=== PATIENT | male | born 1980 | race Caucasian/White ===

== ENCOUNTER 2019-09-17 13:02 | Emergency (ER) | payer BC, SELFPAY ==
--- NOTE | ~2019-09-17 | XR_ITS ---
EXAMINATION: XR foot RT 2V DATE: 09/17/2019 13:35 INDICATION: Dorsal right foot pain TECHNIQUE: Dorsoplantar and lateral views of the right foot were obtained. COMPARISON: None. FINDINGS: Alignment is normal. No fracture. Mild polyarticular osteoarthritis involving the ankle, first metata rsophalangeal and a few interphalangeal joints. Tiny Achilles and plantar calcaneal spurs. No cortica l erosions or periosteal reaction. Soft tissues are unremarkable. IMPRESSION: 1. Mild degenerative skeletal changes. No acute osseous abnormality. Reviewed, dictated and finalized at location A.
--- NOTE | 2019-09-17 13:09 | ED.LOWEXIN ---
HPI - Extremity Injury (Lower) General Chief Complaint: Extremity Injury, Lower Stated Complaint: Right foot pain Time Seen by Provider: 09/17/19 13:13 Source: patient and RN notes reviewed Mode of arrival: ambulatory Limitations: no limitations History of Present Illness HPI Narrative: 38 year old male who presents to [facility] care with complaints of pain to the dorsal aspect of his right foot for the past 4 days. Patient states that he has had pain like this previously and thinks it could be gout but usually will resolve in a couple of days. Patient states that he knows of no injury to his right foot, describes pain as sharp and tingling and pain is worse with ambulation. Patient states that he started having pain on Monday and Monday he did yard work which he thinks aggravated his pain. Patient has some swelling to the dorsal aspect of his right foot, pedal and posterior tibial pulses strong, does not radiate into his leg or ankle, foot is warm and mobile. Patient states that he has drank tolliver juice, heard it would help gout. Blood pressure rechecked prior to discharge with readings of 140/82. MD complaint: other (right dorsal foot pain) Onset (ago): day(s) (4 days) Injury: Right: foot (dorsal) Type of Injury: unknown Severity: severe Severity scale (1-10): 8 (with ambulation) Relieving factors: nothing Exacerbating factors: movement and other (ambulating) Associated symptoms: tingling Related Data Allergies Allergy/AdvReac Type Severity Reaction Status Date / Time No Known Allergies Allergy Unverified 10/18/15 14:09 Review of Systems Review of Systems: Narrative: CONSTITUTIONAL: Denies fever, chills, or sweats. EYES: Denies visual changes, redness, or discharge. ENT: Denies rhinorrhea, congestion, sore throat, or otalgia. CARDIOVASCULAR: Denies chest pain, palpitations, or edema. RESPIRATORY: Denies cough or dyspnea. GASTROINTESTINAL: Denies abdominal pain, nausea, vomiting, or diarrhea. GENITOURINARY: Denies dysuria or hematuria. SKIN: Denies rash or itching. MUSCULOSKELETAL: Denies back pain, right dorsal foot pain with no known injury,pain increases with ambulation. NEUROLOGIC: Denies headache, numbness, or weakness. PSYCHIATRIC: Denies anxiety or depression. All systems reviewed & are unremarkable except as noted in HPI and below PMFSH Past Medical History Medical History (Updated 09/18/19 @ 11:47 by Annamaria Hui NP) Hx of bladder infections Hypertension Pulmonary embolism Surgical History Surgical History (Updated 09/17/19 @ 14:41 by Annamaria Hui NP) H/O: knee surgery Family History Family History Grandparent Family history of type 2 diabetes mellitus Mother Family history of lupus erythematosus Social History Social History (Updated 09/18/19 @ 11:48 by Annamaria Hui NP) Smoking status: Never smoker Alcohol intake: current Substance use: never Living arrangements: with family Gender identity (if verbalized by the patient): Male Comments At time of signature, agree with nursing past medical, surgical, social history. There is no relevant family history pertinent to the presenting complaint Exam Narrative: Exam Narrative: CONSTITUTIONAL: Denies fever, chills, or sweats. EYES: Denies visual changes, redness, or discharge. ENT: Denies rhinorrhea, congestion, sore throat, or otalgia. CARDIOVASCULAR: Denies chest pain, palpitations, or edema. RESPIRATORY: Denies cough or dyspnea.SAO2 98% on room air. GASTROINTESTINAL: Denies abdominal pain, nausea, vomiting, or diarrhea. GENITOURINARY: Denies dysuria or hematuria. SKIN: Denies rash or itching. MUSCULOSKELETAL: Denies back pain,right dorsal foot pain with tingling to top of foot,increase pain with ambulation, strong pulses to his right foot with nailbeds of right toes having brisk capillary refill. he has mild swelling to the dorsal aspect of his right foot with foot warm
[2019-09-17 13:16] VITALS: BP 179/100; PULSE 83; RESP 16; TEMP 36.8; O2SAT 98
--- NOTE | 2019-09-17 14:06 | PC.NURSE ---
BP rechecked at discharge and was 142/86. Encouraged to follow with pmd, or go to ED if worse.
== END 2019-09-17 14:06 | disposition home or self-care (01) ==
PROVIDERS: Emergency Provider Registered Nurse; PCP Family Medicine
DX: M19.071 Primary osteoarthritis, right ankle and foot (principal); I10 Essential (primary) hypertension; Z87.440 Personal history of urinary (tract) infections; Z86.711 Personal history of pulmonary embolism
CPT/HCPCS: 73620; 99213; G0463

== ENCOUNTER 2019-11-30 20:33 | Inpatient (IN) | payer BC, SELFPAY ==
[2019-11-30] VITALS (9 sets, daily range): BP systolic 127–148; BP diastolic 77–92; PULSE 92–108; RESP 18–27; TEMP 36.2–38; O2SAT 89–98
--- NOTE | ~2019-11-30 | XR_ITS ---
XR chest 1V portable DATE: 11/30/2019 21:10 INDICATION: Shortness of breath. Covid-positive patient. TECHNIQUE: Portable upright AP chest on 11/30/2019 at 2108 hours COMPARISON: 01/05/2017 CT chest FINDINGS: There are patchy areas of pulmonary consolidation in both mid and lower lung zones, right g reater than left, consistent with bilateral pneumonia. Normal heart size. No pulmonary vascular congestion or pleural effusion or pneumothorax. IMPRESSION: Patchy bilateral pulmonary consolidation involving primarily the mid and lower lung zones , right greater than left Reviewed, dictated and finalized at location A. IMPRESSION: Patchy bilateral pulmonary consolidation involving primarily the mi d and lower lung zones, right greater than left
--- NOTE | ~2019-11-30 | XR_ITS ---
EXAMINATION: XR chest 1V portable INDICATION: Pneumonia, COVID positive TECHNIQUE: Portable AP chest at 0839 hours COMPARISON: 11/30/2019 FINDINGS: The lung volumes are low. Right basilar airspace opacities have improved. There are persist ent airspace opacities in the midlung zones. No pleural effusion or pneumothorax is identified. The c ardiomediastinal silhouette is normal. IMPRESSION: 1. Airspace opacities of the mid lung zones with improvement in the right lung base, consistent with pneumonia. Reviewed, dictated and finalized at location A.
--- NOTE | ~2019-11-30 | CT_ITS ---
EXAMINATION: CTA chest PE protocol DATE: 12/01/2019 10:12 INDICATION: Dyspnea. COVID 19 positive. Prior pulmonary embolism. TECHNIQUE: Computed tomography (CT) pulmonary angiogram of the chest was performed with 100 mL Omnipa que-350 intravenous contrast. Additional 3D reconstructions utilizing coronal maximum intensity proje ction (MIP) were performed. Automated exposure control and iterative reconstruction technique were em ployed. The dose-length product was 1079.24 mGy-cm. COMPARISON: None FINDINGS: Good contrast opacification of the pulmonary arteries. There is mild streak artifact from dense contr ast in the superior vena cava and right atrium. Mild scattered respiratory motion artifact which does not significantly limit evaluation. No pulmonary embolism. Multiple bilateral nodular and patchy air space opacities as well as regions of groundglass opacity most consistent with multifocal pneumonia. No septal line thickening to suggest pulmonary edema. No pleural effusion or pneumothorax. Heart size is normal. No pericardial effusion. Mild bilateral hilar and mediastinal lymphadenopathy which is li mj reactive. Diffuse hepatic steatosis with focal sparing along the gallbladder fossa. Bones are un remarkable. IMPRESSION: 1. Multifocal pneumonia throughout both lungs. 2. No pulmonary embolism. 3. Likely reactive mediastinal and bilateral hilar lymphadenopathy. 4. Diffuse hepatic steatosis. Reviewed, dictated and finalized at location A.
--- NOTE | 2019-11-30 20:47 | ECG_ITS ---
Measurements Intervals [place] Rate: 101 P: 30 IL: 116 QRS: 5 QRSD: 94 T: 42 QT: 323 QTc: 420 Interpretive Statements SINUS TACHYCARDIA WITH SHORT IL INTERVAL BORDERLINE ECG Electronically Signed On 11-30-2019 21:28:50 CDT by Marco Muniz D.O.
[2019-11-30 21:14] LABS: Basophils Percent Auto 0.2 % (0.2-1.2); Hematocrit 47.3 % (42.0-52.0); Hemoglobin 15.9 g/dL (14.0-18.0); Immature Granulocyte Absolute 0.02 K/mm3 (0.00-0.031); Immature Granulocyte Percent A 0.4 % (0-0.5); Lymphocytes Absolute Auto 0.43 K/mm3 (0.9-3.2); Lymphocytes Percent Auto 8.2 % (18.3-44.2); Mean Corpuscular HGB Conc 33.6 g/dl (32-36); Mean Corpuscular Hemoglobin 29.7 pg (26-34); Mean Corpuscular Volume 88.4 fl (80-100); Mean Platelet Volume 8.7 fl (7.4-10.4); Monocytes Absolute Auto 0.2 K/mm3 (0.1-0.6); Neutrophils Absolute Auto 4.6 K/mm3 (1.3-6.7); Neutrophils Percent Auto 87.2 % (45.5-73.1); Platelet Count Result 180 k/mm3 (150-375); Red Blood Count 5.35 M/mm3 (4.6-6.20); Red Cell Distribution Width 13.6 % (11.5-14.5); White Blood Count 5.3 K/mm3 (4.5-10.0)
--- NOTE | 2019-11-30 21:22 | ED.SOB ---
HPI - SOB/Dyspnea General Chief Complaint: Shortness of Breath/Dyspnea Stated Complaint: COVID +, sob Time Seen by Provider: 11/30/19 21:13 Source: patient History of Present Illness HPI Narrative: 38 years old white male started having coughing 6 days ago, 2 days later started spiking fever, COVID-19 test was positive yesterday. Patient came to the emergency room because of increased shortness of breath and chest pain. Patient is morbidly obese 181 kg. Related Data Home Medications Medication Instructions Recorded Confirmed albuterol sulfate INHALATION 11/30/19 benzonatate mg PO 11/30/19 Allergies Allergy/AdvReac Type Severity Reaction Status Date / Time No Known Allergies Allergy Verified 11/30/19 20:54 Review of Systems Review of Systems: Narrative: CONSTITUTIONAL: Denies fever, chills, or sweats. EYES: Denies visual changes, redness, or discharge. ENT: Denies rhinorrhea, congestion, sore throat, or otalgia. CARDIOVASCULAR: Denies chest pain, palpitations, or edema. RESPIRATORY: Denies cough or dyspnea. GASTROINTESTINAL: Denies abdominal pain, nausea, vomiting, or diarrhea. GENITOURINARY: Denies dysuria or hematuria. SKIN: Denies rash or itching. MUSCULOSKELETAL: Denies back pain, joint pain, or myalgia. NEUROLOGIC: Denies headache, numbness, or weakness. PSYCHIATRIC: Denies anxiety or depression. PMFSH Past Medical History Medical History Hx of bladder infections Hypertension Pulmonary embolism Surgical History Surgical History H/O: knee surgery Family History Family History Grandparent Family history of type 2 diabetes mellitus Mother Family history of lupus erythematosus Social History Social History Smoking status: Never smoker Alcohol intake: current Substance use: never Gender identity (if verbalized by the patient): Male Exam Narrative: Exam Narrative: General appearance: Well-developed, well-nourished, no significant other at the bedside Skin: Normal color Head: Normocephalic, nontraumatic Eyes: Clear conjunctiva ENT: Oropharynx normal, ears normal, nose normal Neck: Supple, nontender Chest and respiratory: Airway patent, mild respiratory distress, no accessory muscle use Heart: Regular rate/rhythm Abdomen: Soft, nontender, no organomegaly, quiet bowel sounds Vascular: Normal peripheral pulses, normal capillary refill. Musculoskeletal: Normal range of motion, nontender back Neurologic: Alert and oriented ?3, [employer] is normal as tested, no gross motor deficit Course Course Emergency Course: Guarded Consultations Consultation #1: DR VICTOR Date: 11/30/19 Time: 23:00 Consultation #2: DR PADILLA Date: 11/30/19 Time: 23:00 Vital Signs Vital signs: Vital Signs Temperature 36.2 C L 11/30/19 20:49 Pulse Rate 108 H 11/30/19 20:49 Respiratory Rate 18 11/30/19 20:49 Blood Pressure 142/77 H 11/30/19 20:49 Pulse Oximetry 89 L 11/30/19 20:49 Temperature 36.2 C L 11/30/19 20:49 Pulse Rate 108 H 11/30/19 20:49 Respiratory Rate 18 11/30/19 20:49 Blood Pressure 142/77 H 11/30/19 20:49 Pulse Oximetry 89 L 11/30/19 20:49 MDM - SOB/Dyspnea MDM Narrative Medical decision making narrative: COVID-19 with pneumonia, dyspnea and chest pain is my concern. Labs, chest x-ray, ABG on 3 L ordered. Further plan to follow Lab Data Result diagrams: 11/30/19 21:06 11/30/19 21:06 Labs: Lab Results 11/30/19 11/30/19 11/30/19 Range/Units 21:06 21:0
[2019-11-30 21:23] LABS: INR 0.9; Prothrombin Time 12.2 Seconds (11.1-14.7)
[2019-11-30 21:24] LABS: Partial Thromboplastin Time 29.8 SECONDS (22.3-36.8)
[2019-11-30 21:32] LABS: Alanine Aminotransferase 138 U/L (4-50); Albumin Level 3.9 g/dL (3.5-5.1); Alkaline Phosphatase 58 U/L (38-126); Aspartate Amino Transferase 82 U/L (17-59); Bilirubin,Total 0.4 mg/dL (0.2-1.3); Blood Urea Nitrogen 17 mg/dL (9-20); CRP 8.2 mg/dL (<1.0); Calcium 8.1 mg/dL (8.4-10.2); Carbon Dioxide 28 mmol/L (22-30); Chloride 98 mmol/L (98-107); Estimated CRCL calculation 190 ml/min; Estimated Glomerular Filt Rate > 60; Glucose 134 mg/dL (75-110); Potassium 4.2 mmol/L (3.4-5.0); Sodium 134 mmol/L (137-145)
[2019-11-30 21:57] LABS: Alveolar/Arterial O2 Gradient 85.2 mmHg; Base Excess ABG -0.4 mEq/l (+/-2.0); Fractional Inspired Oxygen 32 %; HCO3 ABG 23.8 mEq/l (22.0-26.0); Oxygen Content ABG 21.5 %vol (16.0-22.0); Oxygen Saturation ABG 97.6 % (95.0-100.0); PCO2 ABG 37.9 mmHg (35.0-45.0); PO2 ABG 98.6 mmHg (80.0-100.0); PO2 FiO2 Ratio Arterial Blood 3.08 %; Total Hemoglobin 15.9 g/dL (12.0-18.0); pH ABG 7.416 (7.350-7.450)
[2019-11-30 21:59] LABS: Device NASAL CANNULA; Modified Allen's Test Pass; Site Drawn LEFT RADIAL
[2019-11-30 22:02] LABS: Add Urine Microscopic? YES; Amorphous Sediment Urine Few; Appearance Urine Clear (Clear); Bilirubin Urine Negative (Negative); Blood Urine Negative (Negative); Color Urine Yellow (Yellow); Glucose Urine UA Negative (Negative); Ketones Urine Negative (Negative); Leukocyte Esterase Ur Negative LEU/UL (Negative); Mucus Urine Moderate /lpf; Nitrate Urine Negative (Negative); Protein Urine 2+ mg/dL (Negative); Squamous Epithelial Cell Urine Rare /hpf (Few); WBC Urine 0-3 /hpf
[2019-11-30 22:03] LABS: Specific Grav Ur 1.035 (1.001-1.035)
--- NOTE | 2019-11-30 22:36 | PC.NURSE ---
Called lab to add on C-Reactive Prot
--- NOTE | 2019-11-30 23:48 | PM.IMHP ---
H&P: HPI History of Present Illness Chief complaint: Pneumonia, positive COVID-19 Narrative: Modesto Kemp is a 38 year old male who started to feel ill starting this past Monday. Which was about 6 days ago. His fever did not start spiking until about 2 days later. He said his fever went up to 103. He said he was taking NyQuil and [id number] cold medicine. He said that he works for [employer] and that he was not exposed to any ill contacts. None that he is aware of. There was a case of covid 19 at but he was not around that employee. Now his and twin children are ill as well. The patient went to a [facility] approximately on Monday and was tested for covid 19. On Monday he came back positive. The patient was taking benzonate and using inhaler at home. The patient stated he has a headache and body aches. He has been sleeping on his belly when he is able to sleep. Otherwise he states that he has had restless nights in cannot get a full night's rest. The patient complained of a headache and being short of breath today. His pulse ox was 89% on room air. He was placed on 3 L per nasal cannula and his O2 saturations came up to 96-98%. Patient was started on a Zithromax and Rocephin. As patchy bilateral consolidation involving primarily the mid and lower lung zones the right greater than left. The patient has a loose nonproductive cough. Patient's blood pressure is elevated tonight he typically does not have hypertension. The patient has no past medical history. Patient's arterial blood gases pH 7.416. CO2 Lisandra 7.9. Bicarb 23.8. His PO2 was 90.6. Temperature was 38.0?. Pulse 106 pulse. Respirations 20-27. Date of service 11/30/2019. Review of Systems Review of Systems: All systems reviewed & are unremarkable except as noted in HPI and below Constitutional: Constitutional: Reports as per HPI and Reports no additional constitutional complaints Eyes: Eyes: Reports as per HPI and Reports no additional eye complaints ENT: Reports system reviewed and no additional complaints, except as documented and Reports Normal hearing present Cardiovascular: Cardiovascular: Reports no additional cardiovascular complaints Respiratory: Respiratory: Reports no additional respiratory complaints and Reports no additional respiratory complaints Gastrointestinal: Gastrointestinal: Reports as per HPI and Reports no additional gastrointestinal complaints Musculoskeletal: Musculoskeletal: Reports no additional musculoskeletal complaints Integumentary/Breasts: Skin/Breast: Reports system reviewed and no additional complaints, except as docu and Reports as per HPI Neurologic: Reports system reviewed and no additional complaints, except as documented, Reports as per HPI and Reports Normal hearing present Psychiatric: Psychiatric: Reports no additional psychiatric complaints and Reports as per HPI Endocrine: Endocrine: Reports no additional endocrine complaints Hematologic/Lymphatic: Hematologic/Lymphatic: Reports no additional hematologic/lymphatic complaints Allergic/Immunologic: Allergic/Immunologic: Reports no additional allergic/immunologic complaints PMFSH Past Medical History Medical History (Updated 12/01/19 @ 00:10 by Kelly Mcbride NP) Hx of bladder infections Hypertension Obesity BMI 49. Pulmonary embolism Surgical History Surgical History (Updated 11/30/19 @ 23:57 by Kelly Mcbride NP) H/O: knee surgery Meniscus repair to the left Family History Family History (Updated 11/30/19 @ 23:58 by Kelly Mcbride NP) Grandparent Family history of type 2 diabetes mellitus Mother Family history of lupus erythematosus Sibling Family history of lupus erythematosus Social History Social History (Updated 12/01/19 @ 00:03 by Kelly Mcbride NP) Social History: Patient lives with his who he appoints is his durable power tax associate attorney for healthcare. The patient desires to be a full code. He has a
[2019-12-01] VITALS (15 sets, daily range): BP systolic 113–157; BP diastolic 64–97; PULSE 81–102; RESP 16–26; TEMP 36.2–37.8; O2SAT 90–97; BMI 48.6
--- NOTE | 2019-12-01 00:35 | ADMGEN ---
This patient, Modesto Kemp, was admitted to [facility] Surg Room 331-01. Patient/family oriented to hospital policies and general routines including ID bracelet, bed and alarms, visiting hours, pain management, procedures, bathroom and other care routines, personal items, smoking policy, room service/diet, and visiting hours. Valuables list has been completed. Information on how to activate the Rapid Response Team has been discussed. Patient/Family are encouraged to report perceived risks to care and to ask questions if they do not understand what they are told or what they should do.
[2019-12-01] MEDS: ONDANSETRON INJ 4 MG/2 ML VIAL IV PUSH (04:01)
[2019-12-01 06:15] LABS: Basophils Percent Auto 0.2 % (0.2-1.2); Hemoglobin 15.9 g/dL (14.0-18.0); Immature Granulocyte Absolute 0.01 K/mm3 (0.00-0.031); Immature Granulocyte Percent A 0.2 % (0-0.5); Lymphocytes Absolute Auto 0.55 K/mm3 (0.9-3.2); Mean Corpuscular HGB Conc 33.1 g/dl (32-36); Mean Corpuscular Hemoglobin 29.5 pg (26-34); Mean Corpuscular Volume 89.1 fl (80-100); Mean Platelet Volume 8.6 fl (7.4-10.4); Monocytes Absolute Auto 0.2 K/mm3 (0.1-0.6); Monocytes Percent Auto 4.3 % (2.6-8.5); Neutrophils Absolute Auto 3.5 K/mm3 (1.3-6.7); Neutrophils Percent Auto 82.3 % (45.5-73.1); Platelet Count Result 169 k/mm3 (150-375); Red Blood Count 5.39 M/mm3 (4.6-6.20); Red Cell Distribution Width 13.6 % (11.5-14.5); White Blood Count 4.2 K/mm3 (4.5-10.0)
[2019-12-01 06:28] LABS: Alanine Aminotransferase 121 U/L (4-50); Albumin Level 3.9 g/dL (3.5-5.1); Alkaline Phosphatase 55 U/L (38-126); Aspartate Amino Transferase 70 U/L (17-59); Bilirubin,Total 0.4 mg/dL (0.2-1.3); Blood Urea Nitrogen 16 mg/dL (9-20); Calcium 8.3 mg/dL (8.4-10.2); Carbon Dioxide 30 mmol/L (22-30); Chloride 97 mmol/L (98-107); Estimated CRCL calculation 187 ml/min; Estimated Glomerular Filt Rate > 60; Glucose 114 mg/dL (75-110); Magnesium 2.2 mg/dL (1.6-2.3); Potassium 4.3 mmol/L (3.4-5.0); Sodium 136 mmol/L (137-145)
[2019-12-01] MEDS: ENOXAPARIN 40 MG/0.4 ML SYRINGE SUB-Q (08:55)
[2019-12-01] MEDS: hydrALAZINE HCL 20 MG/ML VIAL 10 MG IV PUSH (11:39)
--- NOTE | 2019-12-01 13:39 | PM.IMPN ---
Progress Note: A&P Assessment and Plan (1) Pneumonia: Onset Date: 11/30/19 Qualifiers: Laterality: bilateral Lung location: lower lobe of lung Pneumonia type: due to unspecified organism Qualified Code(s): J18.9 - Pneumonia, unspecified organism Code(s): J18.9 - Pneumonia, unspecified organism Status: Acute Assessment and Plan: Patient COVID positive outpatient presents with worsening shortness of breath. Patient returned home from [place] 11/23, symptoms started 11/24 and he was tested 11/24, has been at home quarantined since then and received positive results 11/29/19. CTA chest shows multifocal pneumonia throughout both lungs; no PE. Discussed case with Dr Hanley. Continue supportive care with supplemental O2, tylenol as needed for fevers. Agree to start low-dose dexamethasone today. Stop antibiotic therapy as this is felt to be a viral pneumonia caused by coronavirus but we can get a sputum culture. Sputum culture pending. Blood cultures pending. Continue xopenex inhaler and monitor continuous pulse oximetry. (2) COVID-19 virus detected: Onset Date: 11/25/19 Code(s): U07.1 - COVID-19 Status: Acute Assessment and Plan: Patient notes he was tested 11/24 at urgent care and found to be positive for COVID-19. Awaiting fax results from urgent care. Can try to prone if he will tolerate. See above. Continue droplet isolation. (3) Acute hypoxemic respiratory failure: Code(s): J96.01 - Acute respiratory failure with hypoxia Status: Acute Assessment and Plan: Secondary to above. Continuous pulse ox monitoring. (4) Hypertension: Qualifiers: Hypertension type: unspecified Qualified Code(s): I10 - Essential (primary) hypertension Code(s): I10 - Essential (primary) hypertension Status: Acute Assessment and Plan: Blood pressures elevated may be due to discomfort. Not taking any antihypertensives at home. Continue with IV hydralazine and monitor BP. (5) Headache: Qualifiers: Headache chronicity pattern: acute headache Headache type: unspecified Intractability: not intractable Qualified Code(s): R51 - Headache Code(s): R51 - Headache Status: Acute Assessment and Plan: Likely secondary to coughing, viral respiratory illness. If no improvement tomorrow may consider CT brain in AM. (6) Obesity: Qualifiers: Body mass index: BMI 45.0-49.9 Obesity classification: adult class 3 (BMI >= 40) Obesity type: due to excess calories Serious obesity comorbidity presence: without serious comorbidity Qualified Code(s): E66.01 - Morbid (severe) obesity due to excess calories; Z68.42 - Body mass index (BMI) 45.0-49.9, adult Code(s): E66.9 - Obesity, unspecified Status: Chronic Assessment and Plan: BMI 48. Additional Plan History of unprovoked PE/DVT in 2017. CTA is negative for PE. DVT prophylaxis with Lovenox. Subjective Date/time seen: 12/01/19 13:00 Interval history: Mr. Kemp is a 38yo M admitted with acute respiratory failure due to COVID-19. He is feeling pretty unwell. He tells me he feels like his eyes are painful, bulging out of head / pressure . When he tries to take a deep breath, he coughs which makes his eyes/headache worse. He has not had much to eat or drink in the last several days but is thirsty this afternoon. He is having some posterior chest tightness on the left that is worse with coughing and deep breath. He tells me he was nauseous last night but this is improved today, no vomiting today. Review of Systems Review of Systems: Narrative: Twelve systems were reviewed with pertinent positives and negatives as per HPI. Exam Narrative: Exam Narrati
--- NOTE | 2019-12-01 13:50 | PM.CNPUL ---
Assessment and Plan Assessment and plan (1) COVID-19 virus detected: Onset Date: 11/25/19 Code(s): U07.1 - COVID-19 Status: Acute Assessment and Plan: This is a 38 yo healthy man with a week of symptoms including headache, eye pain, cough, shortness of breath, fevers, worsening chest pains with breathing, (+) COVID test from 11/24 on return from [place], presented to the ER November 29 with bilateral lower extremity cannonball lesions on CTA, no PE, hypoxemia, now on 3 L/min with sat 91-93%. He has increased AST 82, ALT 158, increased CRP 8.2, low WBC 4.2 with 82% segs, normal coagulation studies. Treatment has been discussed with RUDY Gonzalez. He has he has a (+) COVID test which explains his symptoms. DVT proph Lvoenios 40 mg subQ daily; he had R gastrocnemius DVT and bilateral Pe in May 2016 Incentive spirometry Stop antibiotics; continue IV acetaminophen for headaches and myalgias; not taking oral now due to nausea. Dexamethasone 6 mg IV daily for 10 days total O2 to keep sat 90-94% Prone position if he can tolerate; he is not able to position himself prone due to muscle aches, and vertigo when turning his head. (2) Pneumonia: Onset Date: 11/30/19 Qualifiers: Laterality: bilateral Lung location: lower lobe of lung Pneumonia type: due to unspecified organism Qualified Code(s): J18.9 - Pneumonia, unspecified organism Code(s): J18.9 - Pneumonia, unspecified organism Status: Acute Assessment and Plan: Due to Covid19, abnormal CT with bilateral infiltrates, requiring 3 L/min of O2. See above. (3) Acute hypoxemic respiratory failure: Code(s): J96.01 - Acute respiratory failure with hypoxia Status: Acute Assessment and Plan: requiring O2, admitted yesterday, staying between 2-3 L/min, may worsen. (4) Obstructive sleep apnea: Code(s): G47.33 - Obstructive sleep apnea (adult) (pediatric) Status: Acute Assessment and Plan: Mild on sleep test 2017, not severe enough to qualify for CPAP or oral appliance, AHI 5.2. History of Present Illness History of Present Illness Consult date: 12/02/19 Requesting physician: Cynthia Masterson PA-C Reason for consult: cough and other (COVID19) Chief complaint: Pneumonia, positive COVID-19 Narrative: NEW: Modesto Kemp is a 38 yo male admitted with a positive COVID test reported on MondayNovember 28, obtained on November 24. He returned from 6 days in [place] on November 23, developed a cough November 24 and was tested that day, and next day he developed fevers, increased cough and shortness of breath, headaches and photophobia. He worsened, presented to the ED on November 29 with hypoxemia, bilateral infiltrates, fever and severe shortness of breath. He was admitted to a medical floor in a negative pressure room. He says that he was on vacation with his family, wore a mask the whole time and observed social distancing. both of his twin sons were sick, too. He was taking baby aspirin before he went on vacation. Review of Systems Review of Systems: Narrative: Eyelids are sensitive to light, eyelids were painful to open his eyes; He is short of breath, has pain taking a breath hin, wincing with each effort; Constitutional: Constitutional: Reports body ache(s) Eyes: Eyes: Reports photophobia Comments: eyelids painful to open; using a gown over his eyes due t ophotosensistivity Cardiovascular: Cardiovascular: Reports chest pain Respiratory: Respiratory: Reports cough (minimally productive, small amoutns of sputum) and Reports dyspnea Musculoskeletal: Musculoskeletal: Reports myalgias Neurologic: Reports headache(s) PMFSH Past Medical History
--- NOTE | 2019-12-01 18:00 | PC.NURSE ---
Patient C/o having a hard time breathing O2 Sat93% r-26. O2 at 3L. Patient turned on stomach and able to breath better. O2 Sat 97% O2 at 3L.
[2019-12-01] MEDS: LEVALBUTEROL HFA (*SP) 15 GM INHALER 2 PUFF INHALATION (18:55)
[2019-12-02] VITALS (12 sets, daily range): BP systolic 120–140; BP diastolic 72–88; PULSE 73–92; RESP 20–24; TEMP 36.4–37.7; O2SAT 91–96
[2019-12-02 06:35] LABS: Hematocrit 45.9 % (42.0-52.0); Hemoglobin 15.2 g/dL (14.0-18.0); Immature Granulocyte Absolute 0.01 K/mm3 (0.00-0.031); Immature Granulocyte Percent A 0.2 % (0-0.5); Lymphocytes Absolute Auto 0.36 K/mm3 (0.9-3.2); Lymphocytes Percent Auto 8.6 % (18.3-44.2); Mean Corpuscular HGB Conc 33.1 g/dl (32-36); Mean Corpuscular Hemoglobin 29.5 pg (26-34); Mean Corpuscular Volume 89.1 fl (80-100); Mean Platelet Volume 8.6 fl (7.4-10.4); Monocytes Absolute Auto 0.2 K/mm3 (0.1-0.6); Monocytes Percent Auto 5.5 % (2.6-8.5); Neutrophils Absolute Auto 3.6 K/mm3 (1.3-6.7); Neutrophils Percent Auto 85.7 % (45.5-73.1); Platelet Count Result 202 k/mm3 (150-375); Red Blood Count 5.15 M/mm3 (4.6-6.20); Red Cell Distribution Width 13.4 % (11.5-14.5); White Blood Count 4.2 K/mm3 (4.5-10.0)
[2019-12-02 06:38] LABS: INR 0.9; Prothrombin Time 12.2 Seconds (11.1-14.7)
[2019-12-02 06:39] LABS: Partial Thromboplastin Time 29.3 SECONDS (22.3-36.8)
[2019-12-02 06:49] LABS: Alanine Aminotransferase 93 U/L (4-50); Albumin Level 3.9 g/dL (3.5-5.1); Alkaline Phosphatase 53 U/L (38-126); Aspartate Amino Transferase 59 U/L (17-59); Bilirubin,Total 0.4 mg/dL (0.2-1.3); Blood Urea Nitrogen 17 mg/dL (9-20); CRP 7.5 mg/dL (<1.0); Calcium 8.4 mg/dL (8.4-10.2); Carbon Dioxide 32 mmol/L (22-30); Chloride 96 mmol/L (98-107); Creatine Kinase 181 U/L (55-170); Estimated CRCL calculation 243 ml/min; Estimated Glomerular Filt Rate > 60; Glucose 113 mg/dL (75-110); Lactate Dehydrogenase 909 U/L (313-618); Magnesium 2.4 mg/dL (1.6-2.3); Phosphorus 3.8 mg/dL (2.5-4.5); Potassium 4.2 mmol/L (3.4-5.0); Sodium 136 mmol/L (137-145)
[2019-12-02] MEDS: ENOXAPARIN 40 MG/0.4 ML SYRINGE SUB-Q ×2 (09:27→20:51)
--- NOTE | 2019-12-02 12:43 | PM.PNPUL ---
Progress Note: A&P Assessment and Plan (1) COVID-19 virus detected: Onset Date: 11/25/19 Code(s): U07.1 - COVID-19 Status: Acute Assessment and Plan: This is a 38 yo healthy man with a week of symptoms including headache, eye pain, cough, shortness of breath, fevers, worsening chest pains with breathing, (+) COVID test from 11/24 on return from [place], presented to the ER November 29 with bilateral lower extremity cannonball lesions on CTA, no PE, hypoxemia, now on 3 L/min with sat 91-93%. He has increased AST 82, ALT 158, increased CRP 8.2, low WBC 4.2 with 82% segs, normal coagulation studies. Treatment has been discussed with RUDY Gonzalez. He has he has a (+) COVID test which explains his symptoms. DVT proph Lovenox 40 mg subQ daily; he had R gastrocnemius DVT and bilateral PE May 2016 Continue incentive spirometry IV acetaminophen for headaches and myalgias; not taking oral now due to nausea. Continue dexamethasone 6 mg IV daily for 10 days total O2 to keep sat 90-94% Prone position if he can tolerate; he is not able to position himself prone due to muscle aches, and vertigo when turning his head. (2) Pneumonia: Onset Date: 11/30/19 Qualifiers: Laterality: bilateral Lung location: lower lobe of lung Pneumonia type: due to unspecified organism Qualified Code(s): J18.9 - Pneumonia, unspecified organism Code(s): J18.9 - Pneumonia, unspecified organism Status: Acute Assessment and Plan: Due to Covid19, abnormal CT with bilateral infiltrates, requiring 3 L/min of O2. See above. (3) Acute hypoxemic respiratory failure: Code(s): J96.01 - Acute respiratory failure with hypoxia Status: Acute Assessment and Plan: requiring O2, staying between 2-3 L/min, monitoring saturation (4) Obstructive sleep apnea: Code(s): G47.33 - Obstructive sleep apnea (adult) (pediatric) Status: Acute Assessment and Plan: Mild on sleep test 2018, not severe enough to qualify for CPAP or oral appliance, AHI 5.2. Subjective Date/time seen: 12/02/19 12:43 this 38 yo man is seen in follow up for COVID-19 pneumonia with hypoxemia. He feels better, is still on 3 L/min, however is not perspiring profusely or coughing as much. He is still cautious when coughing due to chest wall pain with taking a deep breath. Review of Systems Constitutional: Constitutional: Reports body ache(s) and Reports headache(s) ENT: Reports headache(s) Cardiovascular: Cardiovascular: Reports chest pain and Reports dyspnea Respiratory: Respiratory: Reports cough (minimally productive, small amoutns of sputum) and Reports dyspnea Musculoskeletal: Musculoskeletal: Reports myalgias Neurologic: Reports headache(s) Exam Narrative: Exam Narrative: Patient is on 3 L/min, resp rate is lower, 24. Const: General: comfortable and no acute distress HENMT: Head: normal to inspection Ears: hearing grossly normal bilaterally General nose exam: Normal external nose present Face and sinus: normal facial exam Mouth: Yes moist mucous membranes Other: improvement in the dark red irregular lesion 5-7 mm in the left soft palate near the uvula; has almost resolved Eyes: General: appearance normal, both eyes and all related structures Neck: Neck: supple Resp: Auscultation: diminished lung sounds Cardio: Other: distant S1S2, difficult to hear heart tones Skin: General skin exam: normal color Extrem: General: no clubbing, cyanosis (mild) of the fingers and no edema Psych: Mental Status: mental status grossly normal Objective Data Vital Signs Vital Signs: Vital Signs - 24 hr 12/01/19 13:00 12/01/19 13:43
--- NOTE | 2019-12-02 13:43 | PM.IMPN ---
Progress Note: A&P Assessment and Plan (1) Pneumonia: Onset Date: 11/30/19 Qualifiers: Laterality: bilateral Lung location: lower lobe of lung Pneumonia type: due to unspecified organism Qualified Code(s): J18.9 - Pneumonia, unspecified organism Code(s): J18.9 - Pneumonia, unspecified organism Status: Acute Assessment and Plan: Patient tested COVID positive outpatient presents with worsening shortness of breath. Patient returned home from [place] 11/23, symptoms started 11/24 and he was tested 11/24, has been at home quarantined since then and received positive results 11/29/19. CTA chest shows multifocal pneumonia throughout both lungs; no PE. Discussed case with Dr Hanley. Continue supportive care with supplemental O2, tylenol as needed for fevers. Continue low-dose dexamethasone (day 2) which has preliminarily shown reduced mortality rates in hospitalized COVID positive patients. Stop antibiotic therapy as this is felt to be a viral pneumonia caused by coronavirus but we can get a sputum culture if he can produce one. Blood cultures pending with no growth to date. Continue xopenex inhaler and monitor continuous pulse oximetry. Prone if he can tolerate. (2) COVID-19 virus detected: Onset Date: 11/25/19 Code(s): U07.1 - COVID-19 Status: Acute Assessment and Plan: Patient notes he was tested 11/24 at urgent care and found to be positive for COVID-19. Results on the paper chart. See above. Continue droplet isolation. (3) Acute hypoxemic respiratory failure: Code(s): J96.01 - Acute respiratory failure with hypoxia Status: Acute Assessment and Plan: Secondary to above. Continuous pulse ox monitoring. (4) Hypertension: Code(s): I10 - Essential (primary) hypertension Status: Acute Assessment and Plan: Blood pressures elevated yesterday likely due to discomfort; improved and stable today last BP 135/78. Not taking any antihypertensives at home. Noted he used to take blood pressure medications but did hasn't taken any in quite awhile . Continue with IV hydralazine PRN and monitor BP. (5) Headache: Qualifiers: Headache chronicity pattern: acute headache Headache type: unspecified Intractability: not intractable Qualified Code(s): R51 - Headache Code(s): R51 - Headache Status: Acute Assessment and Plan: Improved today. Neck is sore with generalized body aches but negative meningeal signs, afebrile, no leukocytosis, no rash. Continue tylenol, will monitor. (6) Obesity: Code(s): E66.9 - Obesity, unspecified Status: Chronic Assessment and Plan: BMI 48. (7) Transaminitis: Code(s): R74.0 - Nonspecific elevation of levels of transaminase and lactic acid dehydrogenase [LDH] Status: Acute Assessment and Plan: Mild and improving, likely reactive in the setting of viral illness. Will monitor. Additional Plan History of unprovoked PE/DVT in 2017. CTA is negative for PE. DVT prophylaxis with Lovenox, increase dosing to BID given his BMI and increased risk for VTE. Subjective Date/time seen: 12/02/19 1230 Interval history: Mr. Kemp is a 38yo M admitted with acute respiratory failure and pneumonia due to COVID-19. He is feeling better today. His muscles are sore from being tensed up yesterday but his headache and eye pain are improved today. His shortness of breath is a little improved today but deep breaths illicits significant dry coughing. His nausea and vomiting have resolved and he is tolerating more oral intake today. Spoke on the phone with his , Carissa, for an update this afternoon. Review of Systems Review of Systems: Narrative:
[2019-12-02] MEDS: CYCLOBENZAPRINE HCL 5 MG TABLET PO (16:55)
[2019-12-02] MEDS: LEVALBUTEROL HFA (*SP) 15 GM INHALER 2 PUFF INHALATION (22:20)
[2019-12-03] VITALS (21 sets, daily range): BP systolic 113–155; BP diastolic 53–87; PULSE 76–105; RESP 20; TEMP 36.3–38; O2SAT 90–94
[2019-12-03] MEDS: guaiFENesin/DEXTROMETHORPHAN 10 ML UDC PO (02:05)
[2019-12-03 06:43] LABS: Basophils Percent Auto 0.2 % (0.2-1.2); Hematocrit 46.2 % (42.0-52.0); Hemoglobin 15.3 g/dL (14.0-18.0); Immature Granulocyte Absolute 0.01 K/mm3 (0.00-0.031); Immature Granulocyte Percent A 0.2 % (0-0.5); Lymphocytes Absolute Auto 0.66 K/mm3 (0.9-3.2); Lymphocytes Percent Auto 11.2 % (18.3-44.2); Mean Corpuscular HGB Conc 33.1 g/dl (32-36); Mean Corpuscular Hemoglobin 29.4 pg (26-34); Mean Corpuscular Volume 88.8 fl (80-100); Mean Platelet Volume 8.3 fl (7.4-10.4); Monocytes Absolute Auto 0.4 K/mm3 (0.1-0.6); Monocytes Percent Auto 6.1 % (2.6-8.5); Neutrophils Absolute Auto 4.9 K/mm3 (1.3-6.7); Neutrophils Percent Auto 82.3 % (45.5-73.1); Platelet Count Result 261 k/mm3 (150-375); Red Cell Distribution Width 13.3 % (11.5-14.5); White Blood Count 5.9 K/mm3 (4.5-10.0)
[2019-12-03 06:57] LABS: Alanine Aminotransferase 88 U/L (4-50); Albumin Level 4.1 g/dL (3.5-5.1); Alkaline Phosphatase 51 U/L (38-126); Aspartate Amino Transferase 68 U/L (17-59); Bilirubin,Total 0.5 mg/dL (0.2-1.3); Blood Urea Nitrogen 20 mg/dL (9-20); Calcium 8.8 mg/dL (8.4-10.2); Carbon Dioxide 34 mmol/L (22-30); Chloride 93 mmol/L (98-107); Estimated CRCL calculation 168 ml/min; Estimated Glomerular Filt Rate > 60; Glucose 103 mg/dL (75-110); Magnesium 2.1 mg/dL (1.6-2.3); Phosphorus 4.7 mg/dL (2.5-4.5); Potassium 4.2 mmol/L (3.4-5.0); Sodium 134 mmol/L (137-145)
[2019-12-03] MEDS: ACETAMINOPHEN 325 MG TABLET 650 MG PO ×2 (08:58→16:45)
[2019-12-03] MEDS: ENOXAPARIN 40 MG/0.4 ML SYRINGE SUB-Q ×2 (08:58→20:31)
--- NOTE | 2019-12-03 16:21 | PM.IMPN ---
Progress Note: A&P Assessment and Plan (1) Pneumonia: Onset Date: 11/30/19 Qualifiers: Laterality: bilateral Lung location: lower lobe of lung Pneumonia type: due to unspecified organism Qualified Code(s): J18.9 - Pneumonia, unspecified organism Code(s): J18.9 - Pneumonia, unspecified organism Status: Acute Assessment and Plan: -----patient tested positive for COVID-19 outpatient and continues to require oxygen. He had a bit of a coughing spell yesterday but is doing better with the steroids. He says the inhaler does not help his symptoms. We will continue the steroids and the oxygen at this time and increase his level of activity to see how he does. He is eager to discharge tomorrow but I do not see him being ready at this time. CTA reviewed, shows multifocal pneumonia likely due to the virus. No antibiotics indicated at this time. Dr. Hanley on board. (2) COVID-19 virus detected: Onset Date: 11/25/19 Code(s): U07.1 - COVID-19 Status: Acute Assessment and Plan: ------Patient notes he was tested 11/24 at urgent care and found to be positive for COVID-19. Results on the paper chart. (3) Acute hypoxemic respiratory failure: Code(s): J96.01 - Acute respiratory failure with hypoxia Status: Acute Assessment and Plan: -----Secondary to above. Continuous pulse ox monitoring. \ (4) Hypertension: Code(s): I10 - Essential (primary) hypertension Status: Acute Assessment and Plan: -----blood pressure wax and wanes and currently 147/78. Continue p.r.n. hydralazine. (5) Headache: Qualifiers: Headache type: unspecified Headache chronicity pattern: acute headache Intractability: not intractable Qualified Code(s): R51 - Headache Code(s): R51 - Headache Status: Acute Assessment and Plan: -----improved today. No complaints of head or neck pain. Monitor (6) Obesity: Code(s): E66.9 - Obesity, unspecified Status: Chronic Assessment and Plan: -----BMI 48. Would benefit from weight loss (7) Transaminitis: Code(s): R74.0 - Nonspecific elevation of levels of transaminase and lactic acid dehydrogenase [LDH] Status: Acute Assessment and Plan: -----Mild and improving, likely reactive in the setting of viral illness. Will monitor. Additional Plan History of unprovoked PE/DVT in 2017. CTA is negative for PE. DVT prophylaxis with Lovenox, increased dosing to BID given his BMI and increased risk for VTE. Time Spent With Patient Time with patient: 25 - 35 minutes Subjective Date/time seen: 12/03/19 16:21 Interval history: Pt is a 38-year-old male here for bilateral pneumonia due to COVID. Patient was seen today and states he was coughing a lot overnight and doing much better after the steroids. He said he felt feverish earlier but overall is doing much better. He wants to get out of bed and walk around. He is not having any shortness of breath while sitting which is an improvement compared to yesterday. He is still utilizing oxygen and can't take deep breaths to to him coughing. He denies any loss of taste or smell, chest pain, leg swelling, nausea, vomiting, diarrhea or constipation. Review of Systems Review of Systems: All systems reviewed & are unremarkable except as noted in HPI and below Exam Narrative: Exam Narrative: General: Overweight patient resting comfortably in bed in no acute distress HEENT: normocephalic Neck: supple Neuro: Alert and oriented x4 CV:RRR. Telemetry reviewed with no abnormalities Resp: Bilateral crackles noted. Patient had no conversational dyspnea or retractions. He has been utilizing 2 L of oxygen Abd: Soft, non distended. No pain to palpation. Positive bowel sounds Extremities: No swelling, erythema, or pain to palpation. Objective Data Vital Signs Vital Signs: Vital Signs - 24
[2019-12-03] MEDS: BENZONATATE 100 MG CAPSULE PO (17:09)
--- NOTE | 2019-12-03 18:35 | PM.PNPUL ---
Progress Note: A&P Assessment and Plan (1) COVID-19 virus detected: Onset Date: 11/25/19 Code(s): U07.1 - COVID-19 Status: Acute Assessment and Plan: This is a 38 yo healthy man with a week of symptoms including headache, eye pain, cough, shortness of breath, fevers, worsening chest pains with breathing, (+) COVID test from 11/24 on return from [place], presented to the ER November 29 with bilateral lower extremity cannonball lesions on CTA, no PE, hypoxemia, now on 3 L/min with sat 91-93%. He has increased AST 82, ALT 158, increased CRP 8.2, low WBC 4.2 with 82% segs, normal coagulation studies. Treatment has been discussed with RUDY Gonzalez. He has he has a (+) COVID test which explains his symptoms. DVT proph Lovenox 40 mg subQ daily; he had R gastrocnemius DVT and bilateral PE May 2016 Continue incentive spirometry Continue dexamethasone 6 mg IV daily for 10 days total O2 to keep sat 90-94% (2) Pneumonia: Onset Date: 11/30/19 Qualifiers: Laterality: bilateral Lung location: lower lobe of lung Pneumonia type: due to unspecified organism Qualified Code(s): J18.9 - Pneumonia, unspecified organism Code(s): J18.9 - Pneumonia, unspecified organism Status: Acute Assessment and Plan: Due to Covid19, abnormal CT with bilateral infiltrates, requiring 3 L/min of O2. See above. (3) Acute hypoxemic respiratory failure: Code(s): J96.01 - Acute respiratory failure with hypoxia Status: Acute Assessment and Plan: requiring O2, staying between 2-3 L/min, monitoring saturation (4) Obstructive sleep apnea: Code(s): G47.33 - Obstructive sleep apnea (adult) (pediatric) Status: Acute Assessment and Plan: Mild on sleep test 2018, not severe enough to qualify for CPAP or oral appliance, AHI 5.2. Subjective Date/time seen: 12/04/19 15:10 Feels better, less coughing, was able to take a shower. He is recovering from COVID19 pneumonia. Still onm 3 L/min. Review of Systems Constitutional: Constitutional: Reports body ache(s) and Reports headache(s) ENT: Reports headache(s) Cardiovascular: Cardiovascular: Reports dyspnea Respiratory: Respiratory: Reports cough (minimally productive, small amoutns of sputum) and Reports dyspnea Exam Narrative: Exam Narrative: Patient is on 3 L/min, resp rate is lower, 24. Const: General: comfortable and no acute distress HENMT: Head: normal to inspection Ears: hearing grossly normal bilaterally General nose exam: Normal external nose present Face and sinus: normal facial exam Mouth: Yes moist mucous membranes Other: improvement in the dark red irregular lesion 5-7 mm in the left soft palate near the uvula; has almost resolved Eyes: General: appearance normal, both eyes and all related structures Direct Ophthalmoscopy: photophobia Neck: Neck: supple Resp: Auscultation: diminished lung sounds Cardio: Other: distant S1S2, difficult to hear heart tones Skin: General skin exam: normal color Extrem: General: no clubbing, cyanosis (mild) of the fingers and no edema Psych: Mental Status: mental status grossly normal Affect: Anxious affect present Objective Data Vital Signs Vital Signs: Vital Signs - 24 hr 12/02/19 20:00 12/02/19 22:00 12/03/19 00:00 Temperature 36.8 C Pulse Rate 92 87 85 Respiratory Rate 20 Blood Pressure 140/80 Pulse Oximetry 91 12/03/19 02:00 12/03/19 04:00 12/03/19 06:00 Temperature 36.9 C 36.9 C Pulse Rate 85 77 88 Respiratory Rate 20 20 Blood Pressure 113/53 L 155/57 H Pulse Oximetry 94 94 12/03/19 07:48 12/03/19 08:00 12/03/19 08:58 Temperature 38.0 C H Pulse Rate 95
[2019-12-03] MEDS: MELATONIN 5 MG TABLET PO (20:36)
[2019-12-04] VITALS (16 sets, daily range): BP systolic 113–140; BP diastolic 51–90; PULSE 73–84; RESP 16–24; TEMP 36.3–36.7; O2SAT 90–95
[2019-12-04] MEDS: guaiFENesin/DEXTROMETHORPHAN 10 ML UDC PO (00:09)
[2019-12-04] MEDS: LEVALBUTEROL HFA (*SP) 15 GM INHALER 2 PUFF INHALATION (04:24)
[2019-12-04 05:20] LABS: Alveolar/Arterial O2 Gradient 179.6 mmHg; Base Excess ABG 2.3 mEq/l (+/-2.0); Carboxyhemoglobin 0.4 % THb (0-2.0); Fractional Inspired Oxygen 40 %; HCO3 ABG 26.9 mEq/l (22.0-26.0); Methemoglobin ABG 0.3 %THb (0-1.5); Oxygen Content ABG 20.3 %vol (16.0-22.0); Oxygen Saturation ABG 90.5 % (95.0-100.0); PCO2 ABG 41.9 mmHg (35.0-45.0); PO2 ABG 57.4 mmHg (80.0-100.0); PO2 FiO2 Ratio Arterial Blood 1.44 %; Reduced Hemoglobin 10.3 %THb (0-5.0); Total Hemoglobin 16.3 g/dL (12.0-18.0); pH ABG 7.426 (7.350-7.450)
[2019-12-04 05:21] LABS: Modified Allen's Test Pass; Site Drawn RIGHT RADIAL
[2019-12-04 05:22] LABS: Device NASAL CANNULA
[2019-12-04 06:47] LABS: Alanine Aminotransferase 81 U/L (4-50); Albumin Level 3.9 g/dL (3.5-5.1); Alkaline Phosphatase 39 U/L (38-126); Aspartate Amino Transferase 75 U/L (17-59); Bilirubin,Total 0.9 mg/dL (0.2-1.3); Blood Urea Nitrogen 24 mg/dL (9-20); CRP 3.9 mg/dL (<1.0); Calcium 8.5 mg/dL (8.4-10.2); Carbon Dioxide 29 mmol/L (22-30); Chloride 97 mmol/L (98-107); Estimated CRCL calculation 243 ml/min; Estimated Glomerular Filt Rate > 60; Glucose 104 mg/dL (75-110); Lactate Dehydrogenase 1293 U/L (313-618); Magnesium 2.4 mg/dL (1.6-2.3); Potassium 4.9 mmol/L (3.4-5.0); Sodium 137 mmol/L (137-145)
[2019-12-04 06:50] LABS: D Dimer 0.45 ug/mL (<0.48)
[2019-12-04] MEDS: ENOXAPARIN 40 MG/0.4 ML SYRINGE SUB-Q ×2 (09:42→20:15)
[2019-12-04] MEDS: BENZONATATE 100 MG CAPSULE PO ×3 (09:42→16:45)
[2019-12-04 14:34] LABS: Pneumococcal Antigen Urine Not Detected (Not Detected)
--- NOTE | 2019-12-04 15:35 | PM.IMPN ---
Progress Note: A&P Assessment and Plan (1) Pneumonia: Onset Date: 11/30/19 Qualifiers: Laterality: bilateral Lung location: lower lobe of lung Pneumonia type: due to unspecified organism Qualified Code(s): J18.9 - Pneumonia, unspecified organism Code(s): J18.9 - Pneumonia, unspecified organism Status: Acute Assessment and Plan: -----patient tested positive for COVID-19 outpatient and continues to require oxygen. He was on 6L when I was in there but when sitting he could probably use less so I put him down to 4L. He was hypoxic walking around but doing okay. His labs and CXR show improvement but clinically isn't doing much better. He says the inhaler does not help his symptoms. We will continue the steroids and the oxygen at this time. CTA reviewed, shows multifocal pneumonia likely due to the virus. No antibiotics indicated at this time. Dr. Hanley on board. (2) COVID-19 virus detected: Onset Date: 11/25/19 Code(s): U07.1 - COVID-19 Status: Acute Assessment and Plan: ------Patient notes he was tested 11/24 at urgent care and found to be positive for COVID-19. Results on the paper chart. (3) Acute hypoxemic respiratory failure: Code(s): J96.01 - Acute respiratory failure with hypoxia Status: Acute Assessment and Plan: -----Secondary to above. Continuous pulse ox monitoring. (4) Hypertension: Code(s): I10 - Essential (primary) hypertension Status: Acute Assessment and Plan: -----blood pressure wax and wanes and currently 140/82. Continue p.r.n. hydralazine. (5) Headache: Qualifiers: Headache type: unspecified Headache chronicity pattern: acute headache Intractability: not intractable Qualified Code(s): R51 - Headache Code(s): R51 - Headache Status: Acute Assessment and Plan: -----improved today. No complaints of head or neck pain. Monitor (6) Obesity: Code(s): E66.9 - Obesity, unspecified Status: Chronic Assessment and Plan: -----BMI 48. Would benefit from weight loss (7) Transaminitis: Code(s): R74.0 - Nonspecific elevation of levels of transaminase and lactic acid dehydrogenase [LDH] Status: Acute Assessment and Plan: -----Mild and improving, likely reactive in the setting of viral illness. Will monitor. Additional Plan History of unprovoked PE/DVT in 2017. CTA is negative for PE. DVT prophylaxis with Lovenox, increased dosing to BID given his BMI and increased risk for VTE. Subjective Date/time seen: 12/04/19 15:35 Interval history: Pt is a 38-year-old male here for bilateral pneumonia due to COVID. Patient was seen today and feels better. he has not has any more dizziness and has been walking around the room. When I walked in he was walking back from the bathroom without o2 and slightly out of breath. He says he feels okay unless he moves and then he gets winded. he is still having coughing fits and isn't taking deep breaths because it makes the coughing worse. He denies cp, fevers, chills, nausea, diarrhea, constipation or vomiting today. He is eating and drinking well. Exam Narrative: Exam Narrative: General: Overweight patient resting comfortably in the chair in no acute distress HEENT: normocephalic Neck: supple Neuro: Alert and oriented x4 CV:RRR. Telemetry reviewed with no abnormalities Resp: relatively CTA. Patient had no conversational dyspnea or retractions. He was 87-89% after walking around but once he sat down he got back up to 93% Abd: Soft, non distended. No pain to palpation. Positive bowel sounds Extremities: No swelling, erythema, or pain to palpation. Objective Data Vital Signs Vital Signs: Vital Signs - 24 hr 12/03/19 16:00 12/03/19 16:45 12/03/19 17:00 Temperature 100.3 F H Pulse Rate 87 85 Respiratory Rate 20 Blood Pressure Pulse Oximetry 90
[2019-12-04] MEDS: MELATONIN 5 MG TABLET PO (20:15)
[2019-12-05] VITALS (17 sets, daily range): BP systolic 95–139; BP diastolic 42–91; PULSE 60–87; RESP 16–18; TEMP 35.7–36.6; O2SAT 87–95
[2019-12-05] MEDS: BENZONATATE 100 MG CAPSULE PO ×3 (09:19→16:22)
[2019-12-05] MEDS: ENOXAPARIN 40 MG/0.4 ML SYRINGE SUB-Q ×2 (09:20→20:25)
--- NOTE | 2019-12-05 11:19 | PM.PNPUL ---
Progress Note: A&P Assessment and Plan (1) COVID-19: Code(s): U07.1 - COVID-19 Status: Acute Assessment and Plan: -Clinically improving - can be discharged home to finished 10 day course of oral dexamethasone 6 mg daily if O2 sats are 90% or greater on RA - needs outpatient CT chest and PFT in 4-6 weeks Subjective Date/time seen: 12/05/19 11:19 Interval history: Feeling much better, cough,dyspnea have improved. Weaned to 2 liters oxygen this morning. No fevers, no GI symptoms and appetite is good. Today is day #11 from start of symptoms Review of Systems Review of Systems: All systems reviewed & are unremarkable except as noted in HPI and below Exam Const: General: comfortable and no acute distress Eyes: General: appearance normal, both eyes and all related structures Neck: Neck: supple and no JVD Resp: Auscultation: clear to auscultation bilaterally, no crackles, no rales, no rhonchi, no wheezes and diminished lung sounds Cardio: Rate: regular rate Rhythm: regular rhythm Heart sounds: no murmurs GI: Auscultation: normal bowel sounds Skin: General skin exam: normal color and no rashes or lesions noted Neuro: Cognition (Neuro): normal cognition Speech: normal speech Extrem: General: normal to inspection, no edema and no pedal edema Psych: Mental Status: mental status grossly normal Objective Data Vital Signs Vital Signs: Vital Signs - 24 hr 12/04/19 12:00 12/04/19 13:00 12/04/19 14:00 Temperature 36.6 C Pulse Rate 80 80 84 Respiratory Rate 20 18 Blood Pressure 140/82 Pulse Oximetry 92 91 12/04/19 16:00 12/04/19 17:00 12/04/19 20:00 Temperature Pulse Rate 84 78 78 Respiratory Rate 18 Blood Pressure Pulse Oximetry 93 12/04/19 20:30 12/04/19 22:00 12/05/19 00:00 Temperature 36.4 C L Pulse Rate 76 66 Respiratory Rate 18 Blood Pressure 113/90 Pulse Oximetry 95 92 91 12/05/19 02:00 12/05/19 04:00 12/05/19 06:00 Temperature 36.6 C 36.3 C L Pulse Rate 77 60 76 Respiratory Rate 18 18 Blood Pressure 109/42 L 133/79 Pulse Oximetry 93 92 12/05/19 08:00 12/05/19 10:00 Temperature 36.4 C L Pulse Rate 82 87 Respiratory Rate 16 Blood Pressure 107/60 Pulse Oximetry 93 Intake/Output Intake/Output: Intake & Output 12/02/19 12/03/19 12/04/19 12/05/19 23:59 23:59 23:59 23:59 Intake Total 2430 2150 1460 620 Output Total 1050 200 Balance 1380 1950 1460 620 Meds/Results Medications: Active Medications Generic Name Dose Route Start Last Admin Trade Name Freq PRN Reason Stop Dose Admin Acetaminophen 650 mg 12/02/19 04:39 12/03/19 16:45 Tylenol Tablet PO 650 mg Q4H PRN Administration Mild Pain (1-3) or Fever Benzonatate 100 mg 12/03/19 17:00 12/05/19 09:19 Tessalon Perles PO 100 mg TID EDWARD Administration Cyclobenzaprine HCl 5 mg 12/02/19 12:50 12/02/19 16:55 Flexeril PO 5 mg Q12H PRN Administration Muscle Spasm Dexamethasone Sodium Phosphate 6 mg 12/01/19 14:15 12/05/19 09:20 Decadron 10 Mg/Ml Inj IV PUSH 6 mg QAM EDWARD Administration Diphenhydramine HCl 25 mg 12/01/19 14:21 Benadryl Inj IV PUSH Q4H PRN Itching Enoxaparin Sodium 40 mg 12/02/19 21:00 12/05/19 09:20 Lovenox SUB-Q 40 mg Q12HR EDWARD Administration Hydralazine HCl 10 mg 11/30/19 23:43 12/01/19 11:39 Apresoline Hcl Inj IV PUSH 10 mg Q8H PRN Administration Blood Pressure - High Levalbuterol HCl 2 puff 11/30/19 23:44 12/04/19 04:24 Xopenex Hfa INHALATION 2 puff Q6HRT PRN Administration Shortness Of Breath Melatonin 5 mg 12/03/19 21:00 12/04/19 20:15 Melatonin PO 5 mg HS EDWARD Administration Radiology Results: ITS Impressions Chest CTA 12/01/19 10:22 IMPRESSION: 1. Multifocal pneumonia throughout both lungs. 2. No pulmonary embolism. 3. Likely reactive mediastinal and bilateral hilar lymphadenopathy. 4. Diffuse hepatic stea
--- NOTE | 2019-12-05 14:33 | PM.IMPN ---
Progress Note: A&P Assessment and Plan (1) Pneumonia: Onset Date: 11/30/19 Qualifiers: Laterality: bilateral Lung location: lower lobe of lung Pneumonia type: due to unspecified organism Qualified Code(s): J18.9 - Pneumonia, unspecified organism Code(s): J18.9 - Pneumonia, unspecified organism Status: Acute Assessment and Plan: -----patient is improving and now down to 2 L of oxygen. Hopefully he can discharge home tomorrow if we can wean him off oxygen. He positive for COVID-19 outpatient. His labs and CXR show improvement. He says the inhaler does not help his symptoms. We will continue the steroids and the oxygen at this time. CTA reviewed, shows multifocal pneumonia likely due to the virus. No antibiotics indicated at this time. Pulmonology on board. (2) COVID-19 virus detected: Onset Date: 11/25/19 Code(s): U07.1 - COVID-19 Status: Acute Assessment and Plan: ------Patient notes he was tested 11/24 at urgent care and found to be positive for COVID-19. Results on the paper chart. (3) Acute hypoxemic respiratory failure: Code(s): J96.01 - Acute respiratory failure with hypoxia Status: Acute Assessment and Plan: -----Secondary to above. Continuous pulse ox monitoring. (4) Hypertension: Code(s): I10 - Essential (primary) hypertension Status: Acute Assessment and Plan: -----blood pressure wax and wanes and currently 107/60. Continue p.r.n. hydralazine. (5) Headache: Qualifiers: Headache type: unspecified Headache chronicity pattern: acute headache Intractability: not intractable Qualified Code(s): R51 - Headache Code(s): R51 - Headache Status: Acute Assessment and Plan: -----improved today. No complaints of head or neck pain. Monitor (6) Obesity: Code(s): E66.9 - Obesity, unspecified Status: Chronic Assessment and Plan: -----BMI 48. Would benefit from weight loss (7) Transaminitis: Code(s): R74.0 - Nonspecific elevation of levels of transaminase and lactic acid dehydrogenase [LDH] Status: Acute Assessment and Plan: -----Mild and improving, likely reactive in the setting of viral illness. Will monitor. Additional Plan History of unprovoked PE/DVT in 2017. CTA is negative for PE. DVT prophylaxis with Lovenox, increased dosing to BID given his BMI and increased risk for VTE. Subjective Date/time seen: 12/05/19 14:33 Interval history: Pt is a 38-year-old male here for bilateral pneumonia due to COVID. Patient was seen today and feels much better than yesterday. He says his coughing is much less and he does not feel short of breath. He has been up walking to the bathroom without issue. He is able to take deeper breaths now. He is eating and drinking fine with no loss taste or smell. He denies diarrhea, constipation, chest pain, leg swelling, fevers or chills. He was able to sleep through the night Exam Narrative: Exam Narrative: General: Overweight patient resting comfortably in the bed in no acute distress HEENT: normocephalic Neck: supple Neuro: Alert and oriented x4 CV:RRR. Telemetry reviewed with no abnormalities Resp: relatively CTA. Patient had no conversational dyspnea or retractions. He was 89% on 1 L in his oxygen was increased to 2 L. Abd: Soft, non distended. No pain to palpation. Positive bowel sounds Extremities: No swelling, erythema, or pain to palpation. Objective Data Vital Signs Vital Signs: Vital Signs - 24 hr 12/04/19 16:00 12/04/19 17:00 12/04/19 20:00 Temperature Pulse Rate 84 78 78 Respiratory Rate 18 Blood Pressure Pulse Oximetry 93 12/04/19 20:30 12/04/19 22:00 12/05/19 00:00 Temperature 97.5 F L Pulse Rate 76 66 Respiratory Rate 18 Blood Pressure 113/90 Pulse Oximetry 95 92 91 12/05/19 02:00 12/05/19 04:00 12/05/19
[2019-12-05] MEDS: MELATONIN 5 MG TABLET PO (20:25)
[2019-12-06] VITALS (9 sets, daily range): BP systolic 103–125; BP diastolic 60–82; PULSE 59–79; RESP 16; TEMP 36.3–36.6; O2SAT 92–95
[2019-12-06 00:06] LABS: Legionella pneumophila Ag Ur Not Detected (Not Detected)
[2019-12-06 06:47] LABS: Alanine Aminotransferase 159 U/L (4-50); Alkaline Phosphatase 57 U/L (38-126); Aspartate Amino Transferase 114 U/L (17-59); Bilirubin,Total 0.6 mg/dL (0.2-1.3); Blood Urea Nitrogen 21 mg/dL (9-20); CRP 1.6 mg/dL (<1.0); Calcium 8.9 mg/dL (8.4-10.2); Carbon Dioxide 33 mmol/L (22-30); Chloride 99 mmol/L (98-107); Estimated CRCL calculation 168 ml/min; Estimated Glomerular Filt Rate > 60; Glucose 93 mg/dL (75-110); Lactate Dehydrogenase 776 U/L (313-618); Potassium 4.3 mmol/L (3.4-5.0); Sodium 138 mmol/L (137-145)
[2019-12-06] MEDS: ENOXAPARIN 40 MG/0.4 ML SYRINGE SUB-Q (10:00)
[2019-12-06] MEDS: BENZONATATE 100 MG CAPSULE PO ×2 (10:00→12:34)
--- NOTE | 2019-12-06 10:03 | PCNWS ---
Weekly nutritional screen. Patient is tolerating current diet with adequate intake. No weight loss reported. No nutritional needs at this time.
--- NOTE | 2019-12-06 10:19 | PCRCNOTE ---
HOME O2 EVAL COMPLETE, NO REQUIREMENTS
--- NOTE | 2019-12-06 11:05 | PM.DS ---
DS: Admitting Diagnosis Admitting Diagnosis Admitting Diagnosis: COVID-19 DS: Discharge Diagnosis Discharge Diagnosis (1) Pneumonia: Onset Date: 11/30/19 Qualifiers: Laterality: bilateral Lung location: lower lobe of lung Pneumonia type: due to unspecified organism Qualified Code(s): J18.9 - Pneumonia, unspecified organism Code(s): J18.9 - Pneumonia, unspecified organism Status: Acute (2) COVID-19 virus detected: Onset Date: 11/25/19 Code(s): U07.1 - COVID-19 Status: Acute (3) Acute hypoxemic respiratory failure: Code(s): J96.01 - Acute respiratory failure with hypoxia Status: Acute (4) Hypertension: Code(s): I10 - Essential (primary) hypertension Status: Acute (5) Headache: Qualifiers: Headache type: unspecified Headache chronicity pattern: acute headache Intractability: not intractable Qualified Code(s): R51 - Headache Code(s): R51 - Headache Status: Acute (6) Obesity: Code(s): E66.9 - Obesity, unspecified Status: Chronic (7) Transaminitis: Code(s): R74.0 - Nonspecific elevation of levels of transaminase and lactic acid dehydrogenase [LDH] Status: Acute DS: Summary Hospital Course Reason for hospitalization: COVID-19 pneumonia Hospital Course: Patient is a 38-year-old male who presented emergency room for cough and shortness of breath related to his recent COVID-19 diagnosis. Vitals in the ER and temperature 36.2?, pulse 108, respiratory rate 18, blood pressure 142/77, pulse ox 89 on room air. CBC and BMP within normal limits. Chest x-ray revealed patchy bilateral pulmonary consolidation. CTA was performed which showed multifocal pneumonia throughout both lungs with no pulmonary emboli, likely reactive mediastinal bilateral hilar lymphadenopathy with diffuse hepatic steatosis. Patient was admitted to the hospitalist service and placed on oxygen. He utilized oxygen for 6 days and slowly improved. The day of discharge she had a home oxygen evaluation which showed that he did not require any oxygen at home. During his stay, his liver enzymes were elevated likely due to COVID. He also has hepatic steatosis on his CT which also could be a factor. Although they were more elevated at discharge, the patient was symptomatically improved and ready for discharge. He sees Dr. López and he plans to follow-up with her in 1-2 weeks. At this time he will need a repeat liver function test. He also would benefit from weight loss and sleep study in the future. The patient was educated on social distance thing and quarantine guidelines and the signs and symptoms to come back to emergency room for. He was discharged in stable condition Status at Discharge Functional status at discharge: independent ambulation Overall status at discharge: patient is back to baseline Time Spent with Patient Time attestation: Total time spent providing and/or coordinating discharge services:38 min Time spent: Greater than 30 minutes Exam Narrative: Exam Narrative: General: Overweight patient resting comfortably in the bed in no acute distress HEENT: normocephalic Neck: supple Neuro: Alert and oriented x4 CV:RRR. Telemetry reviewed with no abnormalities Resp: relatively CTA. Patient had no conversational dyspnea or retractions. Requiring no o2 today. Abd: Soft, non distended. No pain to palpation. Positive bowel sounds Extremities: No swelling, erythema, or pain to palpation. DS: Data Data Completed and Pending Labs on day of discharge: Labs from last 24 hours 12/06/19 12/06/19 12/01/19 06:22 06:22 10:53 Sodium 138 Potassium 4.3 Chloride 99 Carbon Dioxide 33 H BUN 21 H Creatinine 0.90 Estim Creat Clear Calc 168 Estimated GFR > 60 Glucose 93 Calcium 8.9 Ferritin 671.00 H Total Bilirubin 0.6 Direct Bilirubin 0.0 AST 114 H ALT 159 H Alkaline Phosphatase
== END 2019-12-06 13:00 | disposition home or self-care (01) | DRG 177 ==
LOC: ANHED 23:02 → ANH3MEDSUR 12-01 08:01
PROVIDERS: Emergency Medicine; Nurse Practitioner; Physician Assistant; Admitting Provider Family Medicine; Emergency Provider Emergency Medicine; PCP Family Medicine; Visit Provider Physician Assistant
DX: U07.1 COVID-19 (principal); J12.89 Other viral pneumonia; J96.01 Acute respiratory failure with hypoxia; Z68.41 Body mass index [BMI] 40.0-44.9, adult; E66.01 Morbid (severe) obesity due to excess calories; R51 Headache; I10 Essential (primary) hypertension; R74.0 Nonspecific elevation of levels of transaminase and lactic acid dehydrogenase [LDH]; G47.33 Obstructive sleep apnea (adult) (pediatric); Z86.711 Personal history of pulmonary embolism; Z86.718 Personal history of other venous thrombosis and embolism
CPT/HCPCS: 36415; 36600; 71045; 71275; 80048; 80053; 80076; 81001; 82375; 82550; 82728; 82805; 83050; 83605; 83615; 83735; 84100; 85025; 85380; 85610; 85730; 86140; 87040; 87449; 87899; 93005; 94618; 94640; 96365; 96367; 96375; 99285; A9270; J0131; J0360; J0456; J0696; J1100; J1650; J2405; Q9967

== ENCOUNTER 2021-03-24 11:24 | Inpatient (IN) | payer BC, SELFPAY ==
[2021-03-24] VITALS (10 sets, daily range): BP systolic 129–150; BP diastolic 54–101; PULSE 67–98; RESP 13–20; TEMP 35.7–37.1; O2SAT 91–100; BMI 48.6
--- NOTE | ~2021-03-24 | XR_ITS ---
EXAMINATION: XR knee RT 3V EXAM DATE: 03/27/2021 21:28 INDICATION: Swelling and pain right lateral knee. TECHNIQUE: Three projections of the right knee. There is no prior study for comparison. FINDINGS: No evidence osteochondral defect or joint body in the right knee joint. There are no acut e fractures or dislocations identified. There is no subcutaneous gas. There is anterior subcutaneous edema (anterior to the patellar tendon). No evidence of Hoffa's fat pad edema. There is moderate-siz ed joint effusion. There are no radiopaque foreign bodies. IMPRESSION: Moderate-sized right knee joint effusion. Anterior subcutaneous edema. Reviewed, dictated and finalized at location A. IMPRESSION: Moderate-sized right knee joint effusion. Anterior subcutaneous marianna maDenise
--- NOTE | ~2021-03-24 | US_ITS ---
EXAMINATION: US venous doppler LE RT EXAM DATE: 03/28/2021 11:06 INDICATION: Edema to right lateral knee. TECHNIQUE: Multiple grayscale, color flow and Doppler images of the right lower extremity deep venous system were obtained and reviewed. Comparison is made to prior examination from 01/05/1970. FINDINGS: The right common femoral, femoral and profunda veins demonstrate normal color flow, respira tory variation, augmentation and compressibility. Compressibility, color flow confirmed within the r ight popliteal, posterior tibial, peroneal, and greater saphenous veins. There is moderate right knee joint effusion, without evidence of internal debris. IMPRESSION: No right lower extremity deep venous thrombosis. Moderate-sized right knee joint effusion . Reviewed, dictated and finalized at location A. IMPRESSION: No right lower extremity deep venous thrombosis. Moderate-sized rig ht knee joint effusion.
--- NOTE | 2021-03-24 12:34 | ED.GENADULT ---
[facility] - General Adult General Chief complaint: Unspecified Stated complaint: penile erection Time Seen by Provider: 03/24/21 12:25 Source: patient Mode of arrival: ambulatory Limitations: no limitations History of Present Illness HPI narrative: Patient is a 40-year-old male complaining of erection since 1 PM yesterday. Patient states that he just started taking this medication called trazodone. Patient denies any other complaints Related Data Allergies Allergy/AdvReac Type Severity Reaction Status Date / Time No Known Allergies Allergy Verified 03/15/21 16:07 Review of Systems Review of Systems: All systems reviewed & are unremarkable except as noted in HPI and below Constitutional: Constitutional: Denies body ache(s), Denies chills, Denies excessive sweating, Denies fatigue, Denies fever(s), Denies headache(s), Denies lethargy, Denies malaise, Denies weakness and Denies weight loss Eyes: Eyes: Denies blurry vision, Denies change in vision and Denies loss of vision ENT: Denies dizziness, Denies ear discharge, Denies headache(s), Denies lip swelling, Denies epistaxis, Denies nasal congestion, Denies neck pain, Denies throat swelling and Denies tongue swelling Cardiovascular: Cardiovascular: Denies chest pain, Denies chest pain at rest, Denies chest pain with activity, Denies diaphoresis, Denies rapid heart rate, Denies edema, Denies irregular heart rhythm, Denies lightheadedness, Denies palpitations, Denies dyspnea and Denies dyspnea on exertion Respiratory: Respiratory: Denies chest congestion, Denies cough, Denies hemoptysis, Denies dyspnea and Denies dyspnea on exertion Gastrointestinal: Gastrointestinal: Denies abdominal pain, Denies melena, Denies hematochezia, Denies diarrhea, Denies nausea, Denies vomiting and Denies hematemesis Musculoskeletal: Musculoskeletal: Denies abnormal gait, Denies deformity, Denies joint swelling, Denies limited range of motion, Denies neck pain and Denies numbness Neurologic: Denies Abnormal speech present, Denies abnormal gait, Denies confusion, Denies dizziness, Denies headache(s), Denies focal weakness, Denies loss of vision, Denies numbness, Denies Other visual disturbances, Denies Sensory deficit (Neuro) and Denies weakness Psychiatric: Psychiatric: Denies confusion, Denies depression, Denies auditory hallucinations, Denies homicidal ideation and Denies suicidal ideation Endocrine: Endocrine: Denies cold intolerance, Denies excessive sweating, Denies fatigue, Denies heat intolerance and Denies palpitations Hematologic/Lymphatic: Hematologic/Lymphatic: Denies easy bleeding and Denies easy bruising Allergic/Immunologic: Allergic/Immunologic: Denies lip swelling, Denies throat swelling and Denies tongue swelling PMFSH Past Medical History Medical History Hx of bladder infections Hypertension Obesity BMI 48 Obstructive sleep apnea diagnosed 2017, mild AHI 5.[address] Phelps Pulmonary embolism May 2016, unprovoked, R gastrocnemius DVT; Eliquis bid Surgical History Surgical History H/O: knee surgery Meniscus repair to the left Family History Family History Grandparent Family history of type 2 diabetes mellitus Mother Family history of lupus erythematosus Sibling Family history of lupus erythematosus Social History Social History Social History: Patient lives with his who he appoints is his durable power banking attorney for healthcare. The patient desires to be a full code. He has a set of twins. He works at an [employer]. 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 He is a lifelong nonsmoker he does use marijuana or illicit drugs. Smoking status: Never smoker Second hand tobacco smoke exposure: No Alcohol intake: current
[2021-03-24 13:09] LABS: Basophils Absolute Auto 0.1 K/mm3 (0.0-0.1); Basophils Percent Auto 0.6 % (0.2-1.2); Eosinophils Absolute Auto 0.2 K/mm3 (0-0.3); Hematocrit 45.9 % (42.0-52.0); Hemoglobin 15.9 g/dL (14.0-18.0); Immature Granulocyte Absolute 0.04 K/mm3 (0.00-0.031); Immature Granulocyte Percent A 0.5 % (0-0.5); Lymphocytes Absolute Auto 1.09 K/mm3 (0.9-3.2); Mean Corpuscular HGB Conc 34.6 g/dl (32-36); Mean Corpuscular Hemoglobin 30.2 pg (26-34); Mean Corpuscular Volume 87.3 fl (80-100); Monocytes Absolute Auto 0.6 K/mm3 (0.1-0.6); Monocytes Percent Auto 6.7 % (2.6-8.5); Neutrophils Absolute Auto 6.5 K/mm3 (1.3-6.7); Neutrophils Percent Auto 77.2 % (45.5-73.1); Platelet Count Result 302 k/mm3 (150-375); Red Blood Count 5.26 M/mm3 (4.6-6.20); Red Cell Distribution Width 13.9 % (11.5-14.5); White Blood Count 8.4 K/mm3 (4.5-10.0)
[2021-03-24 13:20] LABS: Alanine Aminotransferase 120 U/L (4-50); Albumin Level 4.6 g/dL (3.5-5.1); Alkaline Phosphatase 62 U/L (38-126); Anion Gap 7 mmol/L (8-16); Aspartate Amino Transferase 73 U/L (17-59); Bilirubin,Total 0.7 mg/dL (0.2-1.3); Blood Urea Nitrogen 15 mg/dL (9-20); Calcium 9.5 mg/dL (8.4-10.2); Carbon Dioxide 28 mmol/L (22-30); Chloride 102 mmol/L (98-107); Estimated CRCL calculation 208 ml/min; Estimated Glomerular Filt Rate > 60; Glucose 107 mg/dL (65-110); Potassium 4.6 mmol/L (3.4-5.0); Sodium 137 mmol/L (137-145)
[2021-03-24] MEDS: HYDROmorphone HCL INJ (*CRX) 1 MG/ML SYR IV PUSH (17:00)
[2021-03-24] MEDS: ONDANSETRON INJ 4 MG/2 ML VIAL IV PUSH (17:00)
[2021-03-24] MEDS: LACTATED RINGERS 1,000 ML 150 ML IV CONT (17:01)
--- NOTE | 2021-03-24 17:04 | WPDURCON ---
Assessment and Plan Assessment and plan (1) Priapism: Code(s): N48.30 - Priapism, unspecified Status: Acute Assessment and Plan: Refractory priapism. Patient is aware that given the time limit that he is at increased risk for permanent erectile dysfunction. Will go ahead and attempt aspiration and injection of phenylephrine at bedside. Urology Consult Note HPI Date Seen: 03/24/21 Time Seen: 16:05 Requesting Physician: Eduardo Clemente MD Primary Care Provider: Maribel Sánchez MD Consult Narrative Reason for consult: Priapism Narrative: Modesto Kemp is a 40 year old male who developed priapism approximately 1:00 p.m. yesterday afternoon. Patient did not present to the ER for least 24 to 26 hours after the event. Patient denies use of any illicit drugs although did take trazodone which is the only new medication that he is on. Denies any prior history. Review of Systems Review of Systems: All systems reviewed & are unremarkable except as noted in HPI and below PMFSH Past Medical History Medical History Hx of bladder infections Hypertension Obesity BMI 48 Obstructive sleep apnea diagnosed 2017, mild AHI 5.[address] Phelps Pulmonary embolism May 2016, unprovoked, R gastrocnemius DVT; Eliquis bid Surgical History Surgical History H/O: knee surgery Meniscus repair to the left Family History Family History Grandparent Family history of type 2 diabetes mellitus Mother Family history of lupus erythematosus Sibling Family history of lupus erythematosus Social History Social History Social History: Patient lives with his who he appoints is his durable power transactional attorney for healthcare. The patient desires to be a full code. He has a set of twins. He works at an [employer]. 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 He is a lifelong nonsmoker he does use marijuana or illicit drugs. Smoking status: Never smoker Second hand tobacco smoke exposure: No Alcohol intake: current Alcohol use details: Occasionally Substance use: never Substance use type: does not use Additional living arrangements comments: pt lives with and children Gender identity (if verbalized by the patient): Male Sexual Orientation (if Verbalized by the Patient): Straight or Heterosexual Spiritual care concerns: No Meds Home Medications and Allergies Home Medications Medication Instructions Recorded Confirmed Type lisinopril 10 mg tablet 10 mg PO DAILY #90 tablet 01/11/21 03/15/21 Rx trazodone 50 mg tablet 50 mg PO QHS PRN #30 tablet 03/15/21 03/15/21 Rx methylphenidate HCl 18 mg 18 mg PO QAM #30 tablet 03/16/21 03/16/21 Rx tablet,extended release 24 hr Allergies Allergy/AdvReac Type Severity Reaction Status Date / Time No Known Allergies Allergy Verified 03/15/21 16:07 Vital Signs Vital Signs - 24 hr 03/24/21 11:35 03/24/21 12:33 03/24/21 16:42 Temperature 35.7 C L Pulse Rate 98 84 83 Respiratory Rate 16 16 Blood Pressure 142/87 H 135/101 H 136/94 H Pulse Oximetry 95 95 99 Exam Const: General: cooperative; No comfortable Eyes: General: appearance normal, both eyes and all related structures Chest: Chest palpation & inspection: normal inspection of the chest Resp: Effort & Inspection: normal respiratory effort Cardio: Rate: regular rate Rhythm: regular rhythm GI: Inspection: normal to inspection : Penis: Yes circumcised and Yes priapism Results Labs CBC & Chem 7: 03/24/21 12:59 03/24/21 12:59 Labs: Short CBC 03/24/21 Range/Units 12:59 WBC 8.4 (4.5-10.0) K/mm3 Hgb 15.9 (14.0-18.0) g/dL Hct 45.9 (42.0-
--- NOTE | 2021-03-24 17:08 | W.PM.PROC2 ---
Procedure Note - Detailed Date of Procedure 03/24/21 Pre-op Diagnosis penile erection Post-op Diagnosis same Procedure Performed Aspiration of corpora at bedside and injection of phenylephrine. Surgeon Eduardo Clemente MD Anesthesia local Description of Procedure Patient is in the emergency room. He was prepped and draped usual sterile fashion. 1% lidocaine was used to do a dorsal penile block as well as inject the skin locally along the corpora. An 18 gauge needle was inserted into the corporal body. It was very difficult to aspirate any of the blood that was present due to the thickness of it. At this point time we injected 1 cc of phenylephrine which was mixed appropriately. Blood pressure and heart rate were monitored. Priapism remained. We then injected sequentially another 3 cc over the period of 15 minutes. Again there was no significant de tumescence at this point time. I discussed the consequences including long-term erectile dysfunction requiring prosthesis. We discussed doing a corporal spongiosum shunt and patient has agreed. We will proceed to do that in the operating room with some anesthesia. Drains No Packing No Pathology none sent Complications No immediate complications Condition stable
--- NOTE | 2021-03-24 17:26 | WPDANESEPPF ---
Anes - Initial Pre Proc Eval Procedure: Operation Date: 03/24/21 17:00 Proposed Procedures p Drainage of Priapism - Eduardo Clemente MD Date/Time: 03/24/21 17:26 Surgeon: Eduardo Clemente MD Pre Op Diagnosis: penile erection Patient Data Age: 40 Gender: M Height: 1.91 m Weight: 177.35 kg Last Vital Signs Temp 35.7 C L 03/24/21 11:35 Pulse 83 03/24/21 16:42 Resp 16 03/24/21 16:42 BP 136/94 H 03/24/21 16:42 Pulse Ox 99 03/24/21 16:42 Allergies Allergy/AdvReac Type Severity Reaction Status Date / Time No Known Allergies Allergy Verified 03/15/21 16:07 Home Medications Medication Instructions Recorded Confirmed Type lisinopril 10 mg tablet 10 mg PO DAILY #90 tablet 01/11/21 03/15/21 Rx trazodone 50 mg tablet 50 mg PO QHS PRN #30 tablet 03/15/21 03/15/21 Rx methylphenidate HCl 18 mg 18 mg PO QAM #30 tablet 03/16/21 03/16/21 Rx tablet,extended release 24 hr Laboratory Tests 03/24/21 03/24/21 12:59 12:59 WBC 8.4 K/mm3 K/mm3 (4.5-10.0) RBC 5.26 M/mm3 M/mm3 (4.6-6.20) Hgb 15.9 g/dL g/dL (14.0-18.0) Hct 45.9 % % (42.0-52.0) MCV 87.3 fl fl (80-100) MCH 30.2 pg pg (26-34) MCHC 34.6 g/dl g/dl (32-36) RDW 13.9 % % (11.5-14.5) Plt Count 302 k/mm3 k/mm3 (150-375) MPV 9.0 fl fl (7.4-10.4) Immature Gran % (Auto) 0.5 % % (0-0.5) Neut % (Auto) 77.2 % H % (45.5-73.1) Lymph % (Auto) 13.0 % L % (18.3-44.2) [place] % (Auto) 6.7 % % (2.6-8.5) Eos % (Auto) 2.0 % % (0-4.4) Baso % (Auto) 0.6 % % (0.2-1.2) Lymph # (Auto) 1.09 K/mm3 K/mm3 (0.9-3.2) [place] # (Auto) 0.6 K/mm3 K/mm3 (0.1-0.6) Eos # (Auto) 0.2 K/mm3 K/mm3 (0-0.3) Baso # (Auto) 0.1 K/mm3 K/mm3 (0.0-0.1) Abs Immat Gran (auto) 0.04 K/mm3 H K/mm3 (0.00-0.031) Absolute Neuts (auto) 6.5 K/mm3 K/mm3 (1.3-6.7) Absolute Nucleated RBC 0.0 K/mm3 K/mm3 (0.0-0.012) Nucleated RBC % 0.0 % % (0.0-0.2) Sodium 137 mmol/L mmol/L (137-145) Potassium 4.6 mmol/L mmol/L (3.4-5.0) Chloride 102 mmol/L mmol/L (98-107) Carbon Dioxide 28 mmol/L mmol/L (22-30) Anion Gap 7 mmol/L L mmol/L (8-16) BUN 15 mg/dL D mg/dL (9-20) Creatinine 0.70 mg/dL mg/dL (0.7-1.3) Estim Creat Clear Calc 208 ml/min ml/min Estimated GFR > 60 (59 - ) Glucose 107 mg/dL mg/dL (65-110) Calcium 9.5 mg/dL mg/dL (8.4-10.2) Total Bilirubin 0.7 mg/dL mg/dL (0.2-1.3) AST 73 U/L H U/L (17-59) ALT 120 U/L H U/L (4-50) Alkaline Phosphatase 62 U/L U/L (38-126) Total Protein 8.0 g/dL g/dL (6.3-8.2) Albumin 4.6 g/dL g/dL (3.5-5.1) Patient hx anesthesia problems: none Family hx anesthesia problems: none Results Review: All pre-operative results and documents have been reviewed as part of the pre-operative evaluation. [facility] Past Medical History Medical History Hx of bladder infections Hypertension Obesity BMI 48 Obstructive sleep apnea diagnosed 2017, mild AHI 5.[address] Phelps Pulmonary embolism May 2016, unprovoked, R gastrocnemius DVT; Eliquis bid Surgical History Surgical History H/O: knee surgery Meniscus repair to the left Family History Family History Grandparent Family history of type 2 diabetes mellitus Mother Family history of lupus erythematosus Sibling Family history of lupus erythematosus Social History Social History Social History: Patient lives with his who he appoints is his durable power employee benefits attorney for healthcare. The patient desires to be a full code. He has a set of twins.
--- NOTE | 2021-03-24 17:33 | WPDHPUPDATE1 ---
History and Physical Update Update Date/Time: 03/24/21 17:33 History and Physical has been reviewed, including an updated exam of the patient. There are NO changes in the patient's condition. Risks, benefits, and alternatives have been discussed and questions answered. Patient agrees to proceed with procedure.
[2021-03-24] MEDS: ceFAZolin 3 GM/D5W 100 ML 100 ML IVPB (17:39)
[2021-03-24] MEDS: PHENYLEPHRINE HCL INJ 10 MG, SODIUM CHLORIDE 0.9% INJ 19 ML I-CAVERN (18:06)
[2021-03-24] MEDS: LACTATED RINGERS 1,000 ML 30 ML IV CONT (18:18)
--- NOTE | 2021-03-24 18:20 | W.PM.PROC2 ---
Procedure Note - Detailed Date of Procedure 03/24/21 Pre-op Diagnosis Refractory priapism Post-op Diagnosis same Procedure Performed Corporal spongiosum shunt Surgeon Eduardo Clemente MD Anesthesia general Description of Procedure Patient is taken the operative suite correctly identified. Once anesthesia was obtained was prepped and draped usual sterile fashion. Sixteen [place] Mehta was placed. At this point time he has failed phenylephrine injections and aspirations. We went ahead and took a 15 blade and inserted this through the spongiosa into the corporal body. We rotated the blade 90? away from the urethra. We had immediate return of dark blood. Similar procedure was done on the other corpora. The penis had some detumescence with this maneuver. We then closed the incisions using 3-0 chromic. We placed Kerlix around the penis. Patient was taken recovery stable condition. He will be observed overnight. Estimated Blood Loss 50 Drains Yes Packing No Pathology none sent Complications No immediate complications Condition stable Disposition PACU
[2021-03-24] MEDS: fentaNYL CITRATE INJ (*CRX) 100 MCG/2 ML VIAL 25 MCG IV PUSH ×6 (18:56→19:45)
[2021-03-24] MEDS: HYOSCYAMINE SULFATE 0.125 MG TABLET SUBLINGUAL (20:16)
[2021-03-24] MEDS: HYDROcodone/acetaminophen (*CRX) 5-325 MG TABLET 2 TAB PO (21:00)
--- NOTE | 2021-03-24 23:05 | ADMGEN ---
This patient, Modesto Kemp, was admitted to Medical Room 250-01. Patient/family oriented to hospital policies and general routines including ID bracelet, bed and alarms, visiting hours, pain management, procedures, bathroom and other care routines, personal items, smoking policy, room service/diet, and visiting hours. Information on how to activate the Rapid Response Team has been discussed. Patient/Family are encouraged to report perceived risks to care and to ask questions if they do not understand what they are told or what they should do.
[2021-03-25 00:16] VITALS: BP 133/79; PULSE 78; RESP 20; TEMP 36; O2SAT 94
[2021-03-25] MEDS: LACTATED RINGERS 1,000 ML 125 ML IV CONT ×3 (01:44→18:12)
[2021-03-25 05:02] VITALS: BP 110/56; PULSE 77; RESP 20; TEMP 36.3; O2SAT 92
[2021-03-25] MEDS: HYDROcodone/acetaminophen (*CRX) 5-325 MG TABLET 2 TAB PO (06:36)
--- NOTE | 2021-03-25 07:55 | WPDUROPN2 ---
Progress Note: A&P Assessment and Plan (1) Priapism: Code(s): N48.30 - Priapism, unspecified Status: Acute Assessment and Plan: Still with some recurrent priapism although he is not as uncomfortable prior to the shunt. Mehta catheter was removed. Will discuss with Dr. Yadav regarding whether patient can be discharged and need for corporal tunneling with implant to be performed as an outpatient. Subjective Subjective Date/Time Seen: 03/25/21 07:55 Post Op day: 1 Principal diagnosis: Refractory priapism Interval history: Postoperative day 1. Of a distal shunt. Patient has some discomfort where the incisions were made. Denies any significant pain all pressure that he had prior to the procedure. Mehta catheter is in place. Unfortunately he still has a erection although it is not as firm as it was initially. Review of Systems Review of Systems: All systems reviewed & are unremarkable except as noted in HPI and below Exam Const: General: cooperative and comfortable : Penis: Yes circumcised, Yes ecchymosis and Yes priapism Objective Data Vital Signs Vital Signs: Vital Signs - 24 hr 03/24/21 11:35 03/24/21 12:33 03/24/21 16:42 Temperature 35.7 C L Pulse Rate 98 84 83 Respiratory Rate 16 16 Blood Pressure 142/87 H 135/101 H 136/94 H Pulse Oximetry 95 95 99 03/24/21 18:18 03/24/21 18:37 03/24/21 18:52 Temperature 37.1 C Pulse Rate 85 82 82 Respiratory Rate 16 13 16 Blood Pressure 132/78 129/83 133/90 Pulse Oximetry 99 100 97 03/24/21 19:13 03/24/21 19:32 03/24/21 20:34 Temperature 36.4 C L Pulse Rate 85 86 88 Respiratory Rate 14 15 20 Blood Pressure 139/94 H 140/79 150/98 H Pulse Oximetry 92 96 91 03/24/21 21:28 03/25/21 00:16 03/25/21 05:02 Temperature 36.4 C L 36.0 C L 36.3 C L Pulse Rate 67 78 77 Respiratory Rate 20 20 20 Blood Pressure 139/54 L 133/79 110/56 L Pulse Oximetry 94 94 92 Intake/Output Intake/Output: Intake & Output 03/22/21 03/23/21 03/24/21/28/21 23:59 23:59 23:59 23:59 Intake Total 600 290 Output Total 150 400 Balance 450 -110 Meds/Results Medications: Active Medications Generic Name Dose Route Start Last Admin Trade Name Freq PRN Reason Stop Dose Admin Hydrocodone Bitart/Acetaminophen 1 tab 03/24/21 19:49 Hydrocodone/Acetaminophen (*Crx) 5-325 Mg Tablet PO Q6H PRN Pain Rated 1-3 Hydrocodone Bitart/Acetaminophen 2 tab 03/24/21 19:49 03/25/21 06:36 Hydrocodone/Acetaminophen (*Crx) 5-325 Mg Tablet PO 2 tab Q6H PRN Administration Pain Rated 4-6 Hyoscyamine 0.125 mg 03/24/21 19:49 03/24/21 20:16 Hyoscyamine Sulfate 0.125 Mg Tablet SUBLINGUAL 0.125 mg Q4H PRN Administration Bladder Spasm Lactated Ringer's 1,000 mls @ 125 mls/hr 03/24/21 19:49 03/25/21 01:44 Lr - Lactated Ringers Iv IV CONT 125 mls/hr .Q8H EDWARD Administration Levofloxacin 500 mg 03/25/21 09:00 Levofloxacin 500 Mg Tablet PO DAILY EDWARD Morphine Sulfate 1 mg 03/24/21 19:49 Morphine Sulfate (*Crx) 2 Mg/Ml Inj IV PUSH Q2H PRN Pain Rated 7-10 Naloxone HCl 0.1 mg 03/24/21 19:49 Naloxone Hcl 0.4 Mg/Ml Vial IV PUSH Q2M PRN Opiate Reversal Ondansetron HCl 4 mg 03/24/21 19:49 Ondansetron Inj 4 Mg/2 Ml Vial IV PUSH Q6H PRN Nausea And Vomiting Labs Labs: Laboratory Results - last 24 hr 03/24/21 03/24/21 12:59 12:59 WBC 8.4 RBC 5.26 Hgb 15.9 Hct 45.9 MCV 87.3 MCH 30.2 MCHC 34.6 RDW 13.9 Plt Count 302 MPV 9.0 Immature Gran % (Auto) 0.5 Neut % (Auto) 77.2 H Lymph % (Auto) 13.0 L [place] % (Auto) 6.7 Eos % (Auto) 2.0 Baso % (Auto) 0.6 Lymph # (Auto) 1.09 [place] # (Auto) 0.6 Eos # (Auto) 0.2 Baso # (Auto) 0.1 Abs Immat Gran (auto) 0.04 H Absolute Neuts (auto) 6.5 Absolute Nucleated RBC 0.0 Nucleated RBC % 0.0 Sodium 137 Potassium 4.6 Chloride 102 Carbon Dioxide 28 Anion
[2021-03-25] MEDS: levoFLOXacin 500 MG TABLET PO (09:15)
[2021-03-25 10:00] VITALS: BP 124/60; PULSE 84; RESP 16; TEMP 36.6; O2SAT 98
[2021-03-25 17:34] VITALS: BP 124/63; PULSE 71; RESP 18; TEMP 36.5; O2SAT 98
[2021-03-25] MEDS: HYDROcodone/acetaminophen (*CRX) 5-325 MG TABLET 1 TAB PO (17:58)
[2021-03-25 21:12] VITALS: BP 119/47; PULSE 93; RESP 16; TEMP 36.4; O2SAT 92
[2021-03-26] VITALS (12 sets, daily range): BP systolic 93–161; BP diastolic 58–108; PULSE 67–92; RESP 14–20; TEMP 36.1–37.2; O2SAT 91–98
[2021-03-26] MEDS: LACTATED RINGERS 1,000 ML 125 ML IV CONT ×2 (01:32→16:37)
[2021-03-26] MEDS: LACTATED RINGERS 1,000 ML 30 ML IV CONT (06:15)
--- NOTE | 2021-03-26 06:32 | PC.NURSE ---
To OR per [bed], IV [20RH]. Report given to [Dm].
--- NOTE | 2021-03-26 07:07 | WPDANESEPPF ---
Anes - Initial Pre Proc Eval Procedure: Operation Date: 03/26/21 07:30 Proposed Procedures p Penile Distal Shunt and Tunnelling - Theresa Sage MD Date/Time: 03/26/21 07:07 Surgeon: Eduardo Clemente MD Pre Op Diagnosis: penile erection Patient Data Age: 40 Gender: M Height: 1.91 m Weight: 176.4 kg Last Vital Signs Temp 36.2 C L 03/26/21 05:39 Pulse 67 03/26/21 05:39 Resp 16 03/26/21 05:39 BP 96/58 L 03/26/21 05:39 Pulse Ox 98 03/26/21 05:39 Allergies Allergy/AdvReac Type Severity Reaction Status Date / Time No Known Allergies Allergy Verified 03/15/21 16:07 Home Medications Medication Instructions Recorded Confirmed Type lisinopril 10 mg tablet 10 mg PO DAILY #90 tablet 01/11/21 03/25/21 Rx methylphenidate HCl 18 mg 18 mg PO QAM #30 tablet 03/16/21 03/25/21 Rx tablet,extended release 24 hr Patient hx anesthesia problems: none Family hx anesthesia problems: none Results Review: All pre-operative results and documents have been reviewed as part of the pre-operative evaluation. [facility] Past Medical History Medical History Hx of bladder infections Hypertension Obesity BMI 48 Obstructive sleep apnea diagnosed 2017, mild AHI 5.[address] Phelps Pulmonary embolism May 2016, unprovoked, R gastrocnemius DVT; Eliquis bid Surgical History Surgical History H/O: knee surgery Meniscus repair to the left Family History Family History Grandparent Family history of type 2 diabetes mellitus Mother Family history of lupus erythematosus Sibling Family history of lupus erythematosus Social History Social History Social History: Patient lives with his who he appoints is his durable power employment law attorney for healthcare. The patient desires to be a full code. He has a set of twins. He works at an [employer]. 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 He is a lifelong nonsmoker he does use marijuana or illicit drugs. Smoking status: Never smoker Second hand tobacco smoke exposure: No Alcohol intake: current Drinks per week: 10 Alcohol use details: Occasionally Substance use: never Substance use type: does not use Additional living arrangements comments: pt lives with and children Gender identity (if verbalized by the patient): Male Sexual Orientation (if Verbalized by the Patient): Straight or Heterosexual Spiritual care concerns: No Anes - Eval Final PreProcedure Day of Procedure 03/26/21 07:07 Patient weight: morbidly obese Heart: regular rate and rhythm Lungs: clear to auscultation and normal air movement Airway: Mallampati scale class II Neurological: alert and oriented Last oral intake: >/= 8 hours ASA classification: III Emergent: no Anesthetic plan: proceed Anesthesia type and monitoring: general LMA and standard monitoring Results Review: All pre-operative results and documents have been reviewed as part of the pre-operative evaluation. Informed Consent: The patient's anesthetic plan and its attendant risks and benefits were discussed with the patient/family/POA. Questions were solicited and answers provided to the satisfaction of the patient/family/POA.
--- NOTE | 2021-03-26 07:29 | WPDUROPN2 ---
Progress Note: A&P Assessment and Plan (1) Priapism: Code(s): N48.30 - Priapism, unspecified Status: Acute Additional Plan Patient with trazodone induced priapism who presented for evaluation of 36hours after initiation of priapism and is status post distal shunt March 24, 2021. The patient with persistent erection that is painful. -risk benefits alternatives discussed with patient. We discussed the option of a repeat distal shunt with corporal tunneling. The patient understands the risks of the procedure include but limited to infection, bleeding, pain, injury to surrounding structures, need for additional operations. The patient is understanding that if this shunting procedure is unsuccessful, we will consider a penile implant in the near future. -patient understands I spoke with him and his . They agreed to proceed Subjective Subjective Date/Time Seen: 03/26/21 07:29 -erections persistent Exam Narrative: Awake alert and oriented no acute distress. Breathing is unlabored. His abdomen is obese. The patient with firm corporal bodies, penile ecchymosis. The glans is soft. The incisions from previous distal shunting are healing well Objective Data Vital Signs Vital Signs: Vital Signs - 24 hr 03/25/21 10:00 03/25/21 17:34 03/25/21 21:12 Temperature 36.6 C 36.5 C 36.4 C L Pulse Rate 84 71 93 Respiratory Rate 16 18 16 Blood Pressure 124/60 124/63 119/47 L Pulse Oximetry 98 98 92 03/26/21 01:43 03/26/21 05:39 Temperature 36.3 C L 36.2 C L Pulse Rate 71 67 Respiratory Rate 16 16 Blood Pressure 93/60 L 96/58 L Pulse Oximetry 95 98 Intake/Output Intake/Output: Intake & Output 03/23/21 03/24/21 03/25/21 03/26/21 23:59 23:59 23:59 23:59 Intake Total 600 3860 1400 Output Total 150 850 400 Balance 450 3010 1000 Meds/Results Medications: Active Medications Generic Name Dose Route Start Last Admin Trade Name Freq PRN Reason Stop Dose Admin Hydrocodone Bitart/Acetaminophen 1 tab 03/24/21 19:49 03/25/21 17:58 Hydrocodone/Acetaminophen (*Crx) 5-325 Mg Tablet PO 1 tab Q6H PRN Administration Pain Rated 1-3 Hydrocodone Bitart/Acetaminophen 2 tab 03/24/21 19:49 03/25/21 06:36 Hydrocodone/Acetaminophen (*Crx) 5-325 Mg Tablet PO 2 tab Q6H PRN Administration Pain Rated 4-6 Fentanyl Citrate 25 mcg 03/26/21 07:10 Fentanyl Citrate Inj (*Crx) 100 Mcg/2 Ml Vial IV PUSH Q2M PRN Pain Hyoscyamine 0.125 mg 03/24/21 19:49 03/24/21 20:16 Hyoscyamine Sulfate 0.125 Mg Tablet SUBLINGUAL 0.125 mg Q4H PRN Administration Bladder Spasm Lactated Ringer's 1,000 mls @ 125 mls/hr 03/24/21 19:49 03/26/21 06:33 Lr - Lactated Ringers Iv IV CONT 0 mls/hr .Q8H EDWARD Infusion Lactated Ringer's 1,000 mls @ 30 mls/hr 03/26/21 07:10 03/26/21 06:15 Lr - Lactated Ringers Iv IV CONT 30 mls/hr .Q24H EDWARD Administration Lactated Ringer's 1,000 mls @ 30 mls/hr 03/26/21 07:10 Lr - Lactated Ringers Iv IV CONT .Q24H EDWARD Levofloxacin 500 mg 03/25/21 09:00 03/25/21 09:15 Levofloxacin 500 Mg Tablet PO 500 mg DAILY EDWARD Administration Morphine Sulfate 1 mg 03/24/21 19:49 Morphine Sulfate (*Crx) 2 Mg/Ml Inj IV PUSH Q2H PRN Pain Rated 7-10 Naloxone HCl 0.1 mg 03/24/21 19:49 Naloxone Hcl 0.4 Mg/Ml Vial IV PUSH Q2M PRN Opiate Reversal Ondansetron HCl 4 mg 03/24/21 19:49 Ondansetron Inj 4 Mg/2 Ml Vial IV PUSH Q6H PRN Nausea And Vomiting Ondansetron HCl 4 mg 03/26/21 07:10 Ondansetron Inj 4 Mg/2 Ml Vial IV PUSH ONCE PRN Nausea
--- NOTE | 2021-03-26 08:21 | W.PM.PROC2 ---
Procedure Note - Detailed Date of Procedure 03/26/21 Pre-op Diagnosis Priapism Post-op Diagnosis same Procedure Performed Distal corporal glandular shunt with corporal tunneling Surgeon Theresa Sage MD Anesthesia general Description of Procedure Informed consent obtained. Patient taken the operating. He was given preoperative antibiotics on the floor. He was induced anesthesia. He was prepped and draped in normal sterile fashion. A Mehta catheter was placed. The previous distal shunting sutures were cut we then readvanced a 10 blade into each of the distal corpora in T shunting fashion. There was prompt return of blood that was not extremely dark. We then dilated each corpora distally to the mid shaft with #5 up to #8 Hegar dilators. At this point there appeared to be a nice shunting as there was the tumescence we irrigated with antibiotic and cleared the corpora blood at this point with pressure on the corpora, the erection dissipated. The patient did have significant induration of the corporal bodies, however there was resolution of his priapism at this time. We then placed figure-eight 3-0 chromic sutures through the glanular skin. At this point we observed for 5minutes and there was some return of fullness to the penis however the corporal bodies remained soft and bendable. We placed a dressing. The patient was taken recovery room in stable condition. We will plan close observation in the hospital and assess need for additional intervention if needed Estimated Blood Loss 50 Urine Output 400 Packing No Pathology none sent Complications No immediate complications Condition stable Disposition PACU
[2021-03-26] MEDS: fentaNYL CITRATE INJ (*CRX) 100 MCG/2 ML VIAL 25 MCG IV PUSH ×6 (08:37→09:33)
[2021-03-26] MEDS: levoFLOXacin 500 MG TABLET PO (12:27)
[2021-03-26] MEDS: HYDROcodone/acetaminophen (*CRX) 5-325 MG TABLET 1 TAB PO (12:35)
[2021-03-26] MEDS: HYDROcodone/acetaminophen (*CRX) 5-325 MG TABLET 2 TAB PO (20:11)
[2021-03-27] MEDS: LACTATED RINGERS 1,000 ML 125 ML IV CONT ×2 (00:26→08:29)
[2021-03-27 02:00] VITALS: BP 128/67; PULSE 69; RESP 20; TEMP 36.1; O2SAT 95
[2021-03-27] MEDS: levoFLOXacin 500 MG TABLET PO (08:25)
[2021-03-27] MEDS: MORPHINE SULFATE (*CRX) 2 MG/ML INJ 1 MG IV PUSH (10:30)
[2021-03-27 14:00] VITALS: BP 145/83; PULSE 80; RESP 18; TEMP 36.1; O2SAT 96
--- NOTE | 2021-03-27 15:20 | WPDUROPN2 ---
Progress Note: A&P Assessment and Plan (1) Priapism: Code(s): N48.30 - Priapism, unspecified Status: Acute Assessment and Plan: Patient with trazodone induced priapism who presented for evaluation of 36hours after initiation of priapism and is status post distal shunt March 24, 2021 and again March 26/2021. Erection remains, but is less painful Patient has likely converted from ischemic to non-ischemic priapism -- will hold on ABG as it would not mold insert changer at this time given his planned IPP with Dr. Sage on Monday AM PLAN: -No acute urologic intervention -Plan for NPO at DC on Monday night and IPP with Dr. GARCIA Monday Subjective Subjective Date/Time Seen: 03/27/21 15:20 No acute events overnight pain better controlled Still with penile induration Review of Systems Review of Systems: All systems reviewed & are unremarkable except as noted in HPI and below Exam Const: General: comfortable and no acute distress HENMT: Head: normal to inspection Eyes: General: appearance normal, both eyes and all related structures Neck: Neck: normal visual inspection Chest: Chest palpation & inspection: normal inspection of the chest Resp: Effort & Inspection: normal respiratory effort : Other: Penile ecchymosis and induration; glans and collar stay fuser tender to palpation; corporal bodies indurated Objective Data Vital Signs Vital Signs: Vital Signs - 24 hr 03/26/21 19:54 03/26/21 21:20 03/27/21 02:00 Temperature 36.3 C L 36.1 C L Pulse Rate 82 69 Respiratory Rate 18 20 20 Blood Pressure 133/76 128/67 Pulse Oximetry 96 91 95 Intake/Output Intake/Output: Intake & Output 03/24/21 03/25/21 03/26/21 03/27/21 23:59 23:59 23:59 23:59 Intake Total 600 3860 2700 2420 Output Total 539 592 9297 1250 Balance 450 3010 -50 1170 Meds/Results Medications: Active Medications Generic Name Dose Route Start Last Admin Trade Name Freq PRN Reason Stop Dose Admin Hydrocodone Bitart/Acetaminophen 1 tab 03/24/21 19:49 03/26/21 12:35 Hydrocodone/Acetaminophen (*Crx) 5-325 Mg Tablet PO 1 tab Q6H PRN Administration Pain Rated 1-3 Hydrocodone Bitart/Acetaminophen 2 tab 03/24/21 19:49 03/26/21 20:11 Hydrocodone/Acetaminophen (*Crx) 5-325 Mg Tablet PO 2 tab Q6H PRN Administration Pain Rated 4-6 Hyoscyamine 0.125 mg 03/24/21 19:49 03/24/21 20:16 Hyoscyamine Sulfate 0.125 Mg Tablet SUBLINGUAL 0.125 mg Q4H PRN Administration Bladder Spasm Lactated Ringer's 1,000 mls @ 125 mls/hr 03/24/21 19:49 03/27/21 08:29 Lr - Lactated Ringers Iv IV CONT 125 mls/hr .Q8H EDWARD Administration Levofloxacin 500 mg 03/25/21 09:00 03/27/21 08:25 Levofloxacin 500 Mg Tablet PO 500 mg DAILY EDWARD Administration Morphine Sulfate 1 mg 03/24/21 19:49 03/27/21 10:30 Morphine Sulfate (*Crx) 2 Mg/Ml Inj IV PUSH 1 mg Q2H PRN Administration Pain Rated 7-10 Naloxone HCl 0.1 mg 03/24/21 19:49 Naloxone Hcl 0.4 Mg/Ml Vial IV PUSH Q2M PRN Opiate Reversal Ondansetron HCl 4 mg 03/24/21 19:49 Ondansetron Inj 4 Mg/2 Ml Vial IV PUSH Q6H PRN Nausea And Vomiting
[2021-03-27 19:47] LABS: Alanine Aminotransferase 87 U/L (4-50); Albumin Level 3.5 g/dL (3.5-5.1); Alkaline Phosphatase 53 U/L (38-126); Anion Gap 4 mmol/L (8-16); Aspartate Amino Transferase 48 U/L (17-59); Bilirubin,Total 0.4 mg/dL (0.2-1.3); Blood Urea Nitrogen 12 mg/dL (9-20); Calcium 8.6 mg/dL (8.4-10.2); Carbon Dioxide 33 mmol/L (22-30); Chloride 101 mmol/L (98-107); Estimated CRCL calculation 183 ml/min; Estimated Glomerular Filt Rate > 60; Glucose 128 mg/dL (65-110); Magnesium 1.6 mg/dL (1.6-2.3); Mean Corpuscular HGB Conc 33.3 g/dl (32-36); Mean Corpuscular Hemoglobin 30.4 pg (26-34); Mean Corpuscular Volume 91.1 fl (80-100); Mean Platelet Volume 8.7 fl (7.4-10.4); Platelet Count Result 244 k/mm3 (150-375); Potassium 3.7 mmol/L (3.4-5.0); Red Blood Count 4.61 M/mm3 (4.6-6.20); Red Cell Distribution Width 13.6 % (11.5-14.5); Sodium 138 mmol/L (137-145); White Blood Count 8.6 K/mm3 (4.5-10.0)
--- NOTE | 2021-03-27 20:00 | WPDCN ---
Assessment and Plan Assessment and plan (1) Pain and swelling of right knee: Code(s): M25.561 - Pain in right knee; M25.461 - Effusion, right knee Status: Acute (2) Priapism: Code(s): N48.30 - Priapism, unspecified Status: Acute (3) Hypertension: Code(s): I10 - Essential (primary) hypertension Status: Acute Additional Plan The patient has pressure-like discomfort in the right anterior lateral knee with associated swelling in the same region, worse with flexion and weight-bearing. He gives no history to suggest injury though he did have 2 surgeries in the last several days and perhaps the positioning during those procedures have caused some irritation in the area. The area is not red or warm thus infection is less likely. He does have a history of DVT however the pain and swelling is not in an area where that would occur. At this time we will continue with supportive care including elevation, rest, and analgesics as needed. X-ray of the right knee has been ordered. Depending on those results and his exam tomorrow, consider ultrasound of the sac-like area as detailed above. His blood pressures were reviewed and they have been running a bit high however does not look like he has been receiving his lisinopril. We will resume that and continue to monitor blood pressures closely. He is eating and drinking without issue thus will discontinue IV fluids. Thank you for allowing us to participate in this patient's care. Please do not hesitate to contact us with any questions. Supervising physician for this medical consultation is Dr. Aida Wood. HPI Data of Consult Date/Time: 03/27/21 20:00 Requesting Physician: Eduardo Clemente MD Primary Care Provider: Maribel Sánchez MD Consult Narrative Narrative: This is a very pleasant 40-year-old male with hypertension and history of DVT and PE in 2017 whom the hospitalist service has been consulted for evaluation of pain and swelling of the right knee. He was admitted to the urology service through the emergency department on 03/24/2021 after he presented with priapism for approximately 24 hours. That same day he went to the OR for corporal spongiosum shunt after failing phenylephrine injections and aspirations in the ER. He was taken to the OR again yesterday for a distal corporal glandular shunt with corporal tunneling due to persistent, painful priapism. Since his most recent surgery his pain has been much better controlled and there are plans for IPP on Monday. In any event he developed discomfort and swelling of the right anterolateral knee sometime this afternoon. It is not overtly painful but he does describe a pressure-like sensation in the area, worse with weight-bearing and flexion of the knee. It is somewhat tender to palpation. He denies direct impact and twisting about the joint. He has not had any falls. He does report a previous partial ACL tear in that knee many years ago, treated nonsurgically, and he really has issues with it. He has not noticed any bruising or swelling in the thigh or calf. He has not had fever, chills, or sweats. Review of Systems Review of Systems: Twelve systems were reviewed. No recent cold or flu symptoms. No chest pain, pleuritic pain, palpitations, or shortness of breath. No nausea, vomiting, or diarrhea. No significant dysuria. Except as documented, all other systems were reviewed and are negative. [facility] Past Medical History Medical History (Updated 03/27/21 @ 21:35 by Olga Hernández PA-C) Attention deficit disorder of adult with hyperactivity COVID-19 (12/2019) Deep venous thrombosis Unprovoked right gastrocnemius DVT presenting as PE. Hypertension Obstructive sleep apnea Diagnosed in 2018, mild with an AHI of 5.2. Pulmonary embolism (05/2016) Surgical History Surgical History (Updated 03/27/21 @ 21:24 by Tammi
[2021-03-27 21:36] VITALS: BP 146/72; PULSE 74; RESP 16; TEMP 37; O2SAT 97
[2021-03-27] MEDS: HYDROcodone/acetaminophen (*CRX) 5-325 MG TABLET 2 TAB PO (22:37)
[2021-03-28 05:58] VITALS: BP 145/87; PULSE 75; RESP 18; TEMP 36.5; O2SAT 96
[2021-03-28] MEDS: lisinopriL 10 MG TABLET PO (08:25)
[2021-03-28] MEDS: levoFLOXacin 500 MG TABLET PO (08:25)
--- NOTE | 2021-03-28 09:42 | PM.IMPN ---
Progress Note: A&P Assessment and Plan (1) Pain and swelling of right knee: Code(s): M25.561 - Pain in right knee; M25.461 - Effusion, right knee Status: Acute Assessment and Plan: The patient has pressure-like discomfort in the right anterior lateral knee with associated swelling and reported warmth in the same region, worse with flexion and weight-bearing. He gives no history to suggest injury though he did have 2 surgeries in the last several days and perhaps the positioning during those procedures have caused some irritation in the area. The area is not red, but does have some slight warm noted. He does have a history of DVT however the pain and swelling is not in an area where that would occur and he has no calf pain or calf swelling, only localized to his knee. X-ray of the right knee showed Moderate-sized right knee joint effusion. Anterior subcutaneous edema. Will order US of anterior Subq edema to right anterior knee. WBC normal. No systemic symptoms. Afebrile, nontachycardic, slightly elevated BP most likely secondary to pain and hospitalization At this time we will continue with supportive care including elevation, rest, and analgesics as needed. Continue monitoring (2) Priapism: Code(s): N48.30 - Priapism, unspecified Status: Acute Assessment and Plan: Per Urology (3) Hypertension: Code(s): I10 - Essential (primary) hypertension Status: Acute Assessment and Plan: His blood pressures were reviewed and they have been running a bit high however does not look like he has been receiving his lisinopril. BP 145/87 and will monitor control with restarting Lisinopril. Continue monitoring. Time Spent With Patient Time with patient: 25 - 35 minutes Subjective Date/time seen: 03/28/21 09:42 Interval history: Date of service 03/28/21: The patient reports only having right knee pain with getting up and walking. He reports a few times in the past having right knee stiffness but nothing similar to this. He does report some warmth to his right knee, denies any redness. He has no pain while laying down. Denies any fever, chills, nausea, vomiting, abd pain, SOB, cough, chest pain, calf swelling, calf pain, or any other symptoms at this time. Review of Systems Review of Systems: All systems reviewed & are unremarkable except as noted in HPI and below Exam Narrative: General: 40-year-old man moving around in bed. Appears comfortable. In no acute distress. Skin: No jaundice or cyanosis. Good skin turgor. Neck: Full range of motion. Supple. Respiratory: Lungs are clear to auscultation bilaterally. No bony chest wall tenderness. Cardiovascular: The heart has a regular rate and rhythm without murmur. Lower extremities: Right anteriolateral knee with edema with some slight warmth. No erythema as compared to other knee. Seems to be localized to one area. Left knee normal. No lower extremity edema. Distal pulses are easily palpated. No calf tenderness to palpation. Gastrointestinal: The abdomen is soft, nontender and nondistended with active bowel sounds. Psychiatric: Lucid and oriented. Memory intact. Neurologic: No focal deficits. Speech is clear. No facial drooping. Objective Data Vital Signs Vital Signs: Vital Signs - 24 hr 03/27/21 14:00 03/27/21 21:36 03/28/21 05:58 Temperature 97.0 F L 98.6 F 97.7 F Pulse Rate 80 74 75 Respiratory Rate 18 16 18 Blood Pressure 145/83 H 146/72 H 145/87 H Pulse Oximetry 96 97 96 Intake/Output Intake/Output: Intake & Output 03/25/21 03/26/21 03/27/21 03/28/21 23:59 23:59 23:59 23:59 Intake Total 3860 2700 2420 890 Output Total 850 2750 1250 Balance 3010 -50 1170 890 Meds/Results Medications: Active Medications Generic Name Dose Route Start Last Admin Trade Name Freq PRN Reason Stop Dose Admin Hydrocodone Bitart/Acetaminophen 1 tab 03/24/21 19:49 03/26/21 12:35 Hydrocodone/Acetam
--- NOTE | 2021-03-28 12:06 | WPDUROPN2 ---
Progress Note: A&P Assessment and Plan (1) Priapism: Code(s): N48.30 - Priapism, unspecified Status: Acute Assessment and Plan: Patient with trazodone induced priapism who presented for evaluation of 36hours after initiation of priapism and is status post distal shunt March 24, 2021 and again March 26/2021. Erection remains, but is less painful Patient has likely converted from ischemic to non-ischemic priapism -- will hold on ABG as it would not knife changer at this time given his planned IPP with Dr. Sage on Monday AM PLAN: -No acute urologic intervention -Plan for NPO at [facility] on Monday and IPP with Dr. GARCIA Monday (2) Pain and swelling of right knee: Code(s): M25.561 - Pain in right knee; M25.461 - Effusion, right knee Status: Acute Assessment and Plan: Right knee effusion -- appreciate hospitalist evaluation and management of this issue -- currently continuing with supportive care Subjective Subjective Date/Time Seen: 03/28/21 12:06 Since I saw him yesterday, he developed severe right knee pain with limited motion. Hospitalist consult placed for evaluation. Dopplers negative for DVT but plain films show a new right knee effusion. Penis remains indurated, but not painful at this time. Review of Systems Review of Systems: All systems reviewed & are unremarkable except as noted in HPI and below Exam Narrative: Const General: comfortable and no acute distress HENVA Head: normal to inspection Eyes General: appearance normal, both eyes and all related structures Neck Neck: normal visual inspection Chest Chest palpation & inspection: normal inspection of the chest Resp Effort & Inspection: normal respiratory effort Other: Penile ecchymosis and induration; glans and press tender long goods to palpation; corporal bodies indurated MS: Right knee edema, pain with weight bearing Objective Data Vital Signs Vital Signs: Vital Signs - 24 hr 03/27/21 14:00 03/27/21 21:36 03/28/21 05:58 Temperature 36.1 C L 37.0 C 36.5 C Pulse Rate 80 74 75 Respiratory Rate 18 16 18 Blood Pressure 145/83 H 146/72 H 145/87 H Pulse Oximetry 96 97 96 Intake/Output Intake/Output: Intake & Output 03/25/21 03/26/21 03/27/2121 23:59 23:59 23:59 23:59 Intake Total 3860 2700 2420 890 Output Total 850 2750 1250 Balance 3010 -50 1170 890 Meds/Results Medications: Active Medications Generic Name Dose Route Start Last Admin Trade Name Freq PRN Reason Stop Dose Admin Hydrocodone Bitart/Acetaminophen 1 tab 03/24/21 19:49 03/26/21 12:35 Hydrocodone/Acetaminophen (*Crx) 5-325 Mg Tablet PO 1 tab Q6H PRN Administration Pain Rated 1-3 Hydrocodone Bitart/Acetaminophen 2 tab 03/24/21 19:49 03/27/21 22:37 Hydrocodone/Acetaminophen (*Crx) 5-325 Mg Tablet PO 2 tab Q6H PRN Administration Pain Rated 4-6 Hyoscyamine 0.125 mg 03/24/21 19:49 03/24/21 20:16 Hyoscyamine Sulfate 0.125 Mg Tablet SUBLINGUAL 0.125 mg Q4H PRN Administration Bladder Spasm Levofloxacin 500 mg 03/25/21 09:00 03/28/21 08:25 Levofloxacin 500 Mg Tablet PO 500 mg DAILY EDWARD Administration Lisinopril 10 mg 03/28/21 09:00 03/28/21 08:25 Lisinopril 10 Mg Tablet PO 10 mg DAILY EDWARD Administration Miscellaneous Information 0 each 03/27/21 00:01 03/28/21 08:08 Methylphenidate 18mg (Concerta) Is Nonformulary Can Pt Bring From Home Or We Have Methylph XX 04/26/21 00:00 Not Given CLARIFY EDWARD Morphine Sulfate 1 mg 03/24/21 19:49 03/27/21 10:30 Morphine Sulfate (*Crx) 2 Mg/Ml Inj IV PUSH 1 mg Q2H PRN Administration Pain Rated 7-10 Naloxone HCl 0.1 mg 03/24/21 19:49 Naloxone Hcl 0.4 Mg/Ml Vial IV PUSH Q2M PRN Opiate Reversal Non-Formulary Medication 18 mg 03/28/21 09:00 Methylphenidate Hcl [Concerta] PO 04/27/21 08:59 QAM EDWARD Ondansetron HCl 4 mg 03/24/21 19:49 Ondansetron Inj 4 Mg/2 Ml Vial IV P
[2021-03-28] MEDS: HYDROcodone/acetaminophen (*CRX) 5-325 MG TABLET 2 TAB PO ×2 (12:07→19:48)
[2021-03-28 14:00] VITALS: BP 134/77; PULSE 81; RESP 18; TEMP 35.5; O2SAT 96
[2021-03-28 19:47] VITALS: BP 119/59; PULSE 84; RESP 17; TEMP 36; O2SAT 95
[2021-03-29] VITALS (13 sets, daily range): BP systolic 105–154; BP diastolic 61–88; PULSE 71–90; RESP 16–20; TEMP 36.1–36.9; O2SAT 94–99
[2021-03-29 08:30] LABS: Hematocrit 45.5 % (42.0-52.0); Hemoglobin 15.6 g/dL (14.0-18.0); Mean Corpuscular HGB Conc 34.3 g/dl (32-36); Mean Corpuscular Volume 90.3 fl (80-100); Mean Platelet Volume 8.6 fl (7.4-10.4); Platelet Count Result 271 k/mm3 (150-375); Red Blood Count 5.04 M/mm3 (4.6-6.20); Red Cell Distribution Width 13.5 % (11.5-14.5); White Blood Count 9.2 K/mm3 (4.5-10.0)
[2021-03-29] MEDS: lisinopriL 10 MG TABLET PO (09:03)
[2021-03-29] MEDS: levoFLOXacin 500 MG TABLET PO (09:03)
--- NOTE | 2021-03-29 09:21 | PM.IMPN ---
Progress Note: A&P Assessment and Plan (1) Pain and swelling of right knee: Code(s): M25.561 - Pain in right knee; M25.461 - Effusion, right knee Status: Acute Assessment and Plan: The patient has pressure-like discomfort in the right anterior lateral knee with associated swelling and reported warmth in the same region, worse with flexion and weight-bearing. He gives no history to suggest injury though he did have 2 surgeries in the last several days and perhaps the positioning during those procedures have caused some irritation in the area. The area is not red, but does have some slight warm noted. He does have a history of DVT however the pain and swelling is not in an area where that would occur and he has no calf pain or calf swelling, only localized to his knee. X-ray of the right knee showed Moderate-sized right knee joint effusion. Anterior subcutaneous edema. US of right anterior knee showed Moderate-sized right knee joint effusion. No right lower extremity deep venous thrombosis. WBC normal. No systemic symptoms. Afebrile, nontachycardic, slightly elevated BP most likely secondary to pain and hospitalization At this time, I will consult Orthopedic Surgery for further evaluation and recommendations. Appreciate their input. Will continue with supportive care including elevation, rest, and analgesics as needed. Continue monitoring (2) Priapism: Code(s): N48.30 - Priapism, unspecified Status: Acute Assessment and Plan: Per Urology (3) Hypertension: Code(s): I10 - Essential (primary) hypertension Status: Acute Assessment and Plan: His blood pressures were reviewed and they have been running a bit high however does not look like he has been receiving his lisinopril. BP 113/61. Well controlled. Continue monitoring. Additional Plan Time Spent With Patient Time with patient: 25 - 35 minutes Subjective Date/time seen: 03/29/21 09:21 Interval history: Date of service 03/29/21: The patient reports only having right knee pain with getting up and walking, denies any worsening symptoms in the last 24 hours. He reports a few times in the past having right knee stiffness but nothing similar to this. He does report some warmth to his right knee, denies any redness. He has no pain while laying down. Denies any fever, chills, nausea, vomiting, abd pain, SOB, cough, chest pain, calf swelling, calf pain, or any other symptoms at this time. Review of Systems Review of Systems: All systems reviewed & are unremarkable except as noted in HPI and below Exam Narrative: General: 40-year-old man walking to the bathroom, appears to be limping due to left knee pain. Appears mildly uncomfortable secondary to knee pain with walking. In no acute distress. Skin: No jaundice or cyanosis. Good skin turgor. Neck: Full range of motion. Supple. Respiratory: Lungs are clear to auscultation bilaterally. No bony chest wall tenderness. Cardiovascular: The heart has a regular rate and rhythm without murmur. Lower extremities: Right anterolateral knee with edema with some minimal warmth. No erythema as compared to other knee. Seems to be localized to one area. Left knee normal. No lower extremity edema. Distal pulses are easily palpated. No calf tenderness to palpation. Gastrointestinal: The abdomen is soft, nontender and nondistended with active bowel sounds. Psychiatric: Lucid and oriented. Memory intact. Neurologic: No focal deficits. Speech is clear. No facial drooping. Objective Data Vital Signs Vital Signs: Vital Signs - 24 hr 03/28/21 14:00 03/28/21 19:47 03/29/21 04:19 Temperature 96 F L 96.8 F L 97.6 F Pulse Rate 81 84 79 Respiratory Rate 18 17 19 Blood Pressure 134/77 119/59 L 113/61 Pulse Oximetry 96 95 97 Intake/Output Intake/Output: Intake & Output
[2021-03-29 11:51] LABS: Alanine Aminotransferase 74 U/L (4-50); Albumin Level 3.7 g/dL (3.5-5.1); Alkaline Phosphatase 60 U/L (38-126); Anion Gap 5 mmol/L (8-16); Aspartate Amino Transferase 35 U/L (17-59); Blood Urea Nitrogen 16 mg/dL (9-20); Calcium 9.3 mg/dL (8.4-10.2); Carbon Dioxide 30 mmol/L (22-30); Chloride 101 mmol/L (98-107); Estimated CRCL calculation 164 ml/min; Estimated Glomerular Filt Rate > 60; Glucose 97 mg/dL (65-110); Magnesium 2.2 mg/dL (1.6-2.3); Potassium 4.4 mmol/L (3.4-5.0); Sodium 136 mmol/L (137-145)
--- NOTE | 2021-03-29 12:41 | SUR.PREOP ---
floor RN Jovanna aware vanco and gentamycin orders placed to start at 1430
[2021-03-29 14:43] LABS: CRP 0.9 mg/dL (<1.0)
--- NOTE | 2021-03-29 15:00 | WPDANESEPPF ---
Anes - Initial Pre Proc Eval Procedure: Operation Date: 03/24/21 17:00 Proposed Procedures p Drainage of Priapism - Eduardo Clemente MD Operation Date: 03/26/21 07:30 Proposed Procedures p Penile Distal Shunt and Tunnelling - Theresa Sage MD Operation Date: 03/29/21 15:00 Proposed Procedures p Insertion Penile Prosthesis - Theresa Sage MD Date/Time: 03/29/21 15:00 Surgeon: Eduardo Clemente MD Pre Op Diagnosis: penile erection Patient Data Age: 40 Gender: M Height: 1.91 m Weight: 176.4 kg Last Vital Signs Temp 36.6 C 03/29/21 14:57 Pulse 90 03/29/21 14:57 Resp 20 03/29/21 14:57 BP 127/79 03/29/21 14:57 Pulse Ox 96 03/29/21 14:57 Allergies Allergy/AdvReac Type Severity Reaction Status Date / Time No Known Allergies Allergy Verified 03/15/21 16:07 Home Medications Medication Instructions Recorded Confirmed Type lisinopril 10 mg tablet 10 mg PO DAILY #90 tablet 01/11/21 03/25/21 Rx methylphenidate HCl 18 mg 18 mg PO QAM #30 tablet 03/16/21 03/25/21 Rx tablet,extended release 24 hr Laboratory Tests 03/27/21 03/29/21 03/29/21 19:23 08:02 08:02 WBC 9.2 K/mm3 K/mm3 (4.5-10.0) RBC 5.04 M/mm3 M/mm3 (4.6-6.20) Hgb 15.6 g/dL g/dL (14.0-18.0) Hct 45.5 % % (42.0-52.0) MCV 90.3 fl fl (80-100) MCH 31.0 pg pg (26-34) MCHC 34.3 g/dl g/dl (32-36) RDW 13.5 % % (11.5-14.5) Plt Count 271 k/mm3 k/mm3 (150-375) MPV 8.6 fl fl (7.4-10.4) Sodium 136 mmol/L L mmol/L (137-145) Potassium 4.4 mmol/L mmol/L (3.4-5.0) Chloride 101 mmol/L mmol/L (98-107) Carbon Dioxide 30 mmol/L mmol/L (22-30) Anion Gap 5 mmol/L L mmol/L (8-16) BUN 16 mg/dL mg/dL (9-20) Creatinine 0.90 mg/dL mg/dL (0.7-1.3) Estim Creat Clear Calc 164 ml/min ml/min Estimated GFR > 60 (59 - ) Glucose 97 mg/dL mg/dL (65-110) Calcium 9.3 mg/dL mg/dL (8.4-10.2) Magnesium 2.2 mg/dL mg/dL (1.6-2.3) Total Bilirubin TNP AST 35 U/L U/L (17-59) ALT 74 U/L H U/L (4-50) Alkaline Phosphatase 60 U/L U/L (38-126) C-Reactive Protein 0.9 mg/dL mg/dL (<1.0) Total Protein 7.0 g/dL g/dL (6.3-8.2) Albumin 3.7 g/dL g/dL (3.5-5.1) Patient hx anesthesia problems: none Family hx anesthesia problems: none Results Review: All pre-operative results and documents have been reviewed as part of the pre-operative evaluation. FOR[facility]LY [facility] Past Medical History Medical History Attention deficit disorder of adult with hyperactivity COVID-19 (12/2019) Deep venous thrombosis Unprovoked right gastrocnemius DVT presenting as PE. Hypertension Obstructive sleep apnea Diagnosed in 2018, mild with an AHI of 5.2. Pulmonary embolism (05/2016) Surgical History Surgical History Status post medial meniscus repair of left knee Family History Family History Grandparent Family history of type 2 diabetes mellitus Mother Family history of lupus erythematosus Sibling Family history of lupus erythematosus Social History Social History Social History: The patient lives in [place] with his and they are twins. Lifelong nonsmoker. 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 No illicit substance use. He designates his , Carissa Kemp, as his surrogate decision maker. Code status: Full code. Yens - Radha Final PreProcedure Day of Procedure 03/29/21 15:00 Patient weight: morbidly obese Heart: regular
[2021-03-29] MEDS: LACTATED RINGERS 1,000 ML 30 ML IV CONT ×2 (15:28→20:15)
--- NOTE | 2021-03-29 16:01 | SUR.PREOP ---
1555; PT C/O DIZZINESS WHEN HE TURNS HIS HEAD. VS TAKEN, SEE GRAPHICS. HOB AT 5-10 DEGREES. AT BEDSIDE. IVF INFUSING
--- NOTE | 2021-03-29 16:06 | SUR.PREOP ---
REPORT GIVEN TO NATALIO MAS RN AND KAREN SUN CRNA.
--- NOTE | 2021-03-29 16:23 | WPDHPUPDATE1 ---
History and Physical Update Update Date/Time: 03/29/21 16:23 History and Physical has been reviewed, including an updated exam of the patient. There are NO changes in the patient's condition. Risks, benefits, and alternatives have been discussed and questions answered. Patient agrees to proceed with procedure.
[2021-03-29] MEDS: BUPIVACAINE HCL 0.25% PF 30 ML VIAL INFILTRATE (17:19)
--- NOTE | 2021-03-29 20:21 | W.PM.PROC2 ---
Procedure Note - Detailed Date of Procedure 03/29/21 Pre-op Diagnosis Acute priapism Post-op Diagnosis same Procedure Performed Placement of inflatable 3 piece penile implant Artificial erection dilute lidocaine Surgeon Theresa Sage MD Anesthesia general Indications This is a 40-year-old gentleman who presented with acute priapism for [id number]. Patient has undergone distal shunting x2 with persistent priapism. I discussed options and risks benefits alternatives. The patient has elected proceed with placement of a three-piece inflatable penile implant. He understands the risks of procedure including but not limited to infection, bleeding, pain, injury to surrounding structures, need for additional operations, complications anesthesia. Given the patient's priapism and to previous shunt procedures, he understands there is a high risk of penile implant complication. Additionally given the patient's morbid obesity there is a higher risk of complication. The patient understands the risks, benefits and alternatives as well the higher chance of postoperative complication given his history. Patient agrees to proceed with placement of a AMS 3 piece implant Findings -Fibrosis of the distal corpora. More on that the left side -placement of AMS CX 18+5.5cm RTE Description of Procedure Informed consent obtained, patient taken to the operating room and given preoperative IV antibiotics with vancomycin and gentamicin. Additionally the patient has been taking oral levofloxacin. The patient was shaved. He was then prepped with Betadine scrub and paint followed by ChloraPrep. Sterile drapes were placed. We again prepped with ChloraPrep. A 16-Senegalese Mehta catheter was inserted with return of clear urine. The patient had induration and firmness of the penis, we then performed a pharmacologically induced erection with dilute lidocaine which allowed for some additional filling of the corpora. There was a symmetric, straight erection. We then made a penoscrotal 3 cm incision. We dissected bluntly down to identify the corporal bodies taking great care not to injure the urethra. Stay sutures of 2-0 PDS were placed in the corporal body. We sharply opened the corpora. We then serially dilated from a 10 up to a 12 Enriquez dilator. There was a significant fibrosis of the distal corpora which we were able to dilate. The patient did have significant proximal length. We then measured the corpora. Measurements were 17 cm proximally and 6.5 cm distally. We irrigated and there was no injury. We then performed an identical procedure on the contralateral side. Measurements were 17 cm proximal, 6.5 cm distal. Dilators were placed into the corpora bilaterally confirming that there was no crossover. We elected to place an AMS CX device 18 cm + 5.5 cm of rear tip extenders. We again irrigated the corporal bodies. We then inserted the prosthesis. There was significant difficulty placing the left cylinder distally. We therefore removed the implant and placed a Enriquez dilator and over the dilator extended our corporotomy distally. We then used Metzenbaum scissors to cut through the fibrosis in the distal left corpora and again dilated up to 12 with a improved distal placement of the Enriquez dilator. We then replaced the left cylinder. At this point,we inflated using a surrogate reservoir and the device sat nicely with tips in the mid glans. We then deflated. We then closed the pre-placed 2-0 PDS sutures. We again inflated using the surrogate reservoir with a very good cosmetic result. Given the patient's fibrosis from priapism and morbid obesity, this portion of the case which normally takes 30 minutes did take approximately 90minutes to perform. We then made a right lower quadrant incision for approximately 2 cm. We bluntly dissected down to the external oblique fascia. The fascia was opened. We then made a space above the rectus muscle.We then irrigated copiously. We pre-placed 0 V
[2021-03-29] MEDS: fentaNYL CITRATE INJ (*CRX) 100 MCG/2 ML VIAL 25 MCG IV PUSH ×3 (20:49→21:04)
[2021-03-29] MEDS: MORPHINE SULFATE (*CRX) 2 MG/ML INJ 1 MG IV PUSH ×2 (21:52→23:32)
--- NOTE | 2021-03-29 22:01 | PHAR ---
PER DR TANG, GENT 3 MG/KG Q24HR UNTIL DISCHARGE & CONTINUE VANCOMYCIN 1 GM Q12HR UNTIL DISCHARGE (EXPECTED 03/31/21). PHARMACY KINETIC DOSING IS NOT REQUIRED.
[2021-03-30] VITALS (8 sets, daily range): BP systolic 126–148; BP diastolic 64–77; PULSE 77–92; RESP 18–20; TEMP 35.9–37.2; O2SAT 93–96
[2021-03-30] MEDS: HYDROcodone/acetaminophen (*CRX) 5-325 MG TABLET 2 TAB PO ×4 (01:47→21:22)
[2021-03-30] MEDS: MORPHINE SULFATE (*CRX) 2 MG/ML INJ 1 MG IV PUSH ×3 (03:12→23:21)
--- NOTE | 2021-03-30 08:38 | PM.CNOR ---
Assessment and Plan Assessment and plan (1) Effusion of right knee joint: Code(s): M25.461 - Effusion, right knee Status: Acute Assessment and Plan: History, exam, radiographs and ultrasound reviewed with the patient. Moderate knee joint effusion noted on exam. No redness, mild warmth. Mild diffuse tenderness. Improvement in pain/range of motion of the knee today per patient. Still with limitations with full flexion extension due to large knee joint effusion. Patient does report a history of gout in his right ankle. Mother also with a history of Lupus. Discussed condition, nature, etiology and course of natural history. Conservative and operative treatment options reviewed as well as risks and benefits of each. Discussed aspiration of the right knee to send for culture and Gram stain but patient declines at this time. He would like to attempt ambulate today to see if his knee pain improved. If increase in white blood cell count, CRP, ESR or redness to the knee, would recommend aspiration. Will check uric acid level at this time. The patient would benefit from ice to the right knee. Jose wrap may be applied. Elevation. Ambulation as tolerated. We will continue to follow. History of Present Illness HPI Consult date: 03/30/21 Requesting physician: Dorothea Aldana PA-C Consult reason: other (Right Knee Pain/Swelling ) Chief complaint: penile erection Narrative: 40-year-old male with an acute onset of right knee pain on Monday of last week. Patient was initially admitted with a penile erection and has undergone 3 urologic surgery since date of admission. He did not have right knee pain prior to admission. He does have a history of gout in his right ankle. Right knee joint effusion began on Monday following surgery. He has been having difficulty with weight-bearing and flexion. he has not attempted to bear weight in the last 1 day due to his most recent surgical intervention. He does feel his pain in the right knee has lessened over the last 24 hours. He is now able to bend the knee without significant pain. Radiographs were obtained which revealed a moderate knee joint effusion with anterior subcutaneous edema an ultrasound was ordered which also revealed a moderate knee joint effusion and no evidence of DVT. The patient has a normal white blood cell count and has been afebrile. Right knee without redness, warmth. Orthopedic consult requested by hospitalist service. Review of Systems Review of Systems: All systems reviewed & are unremarkable except as noted in HPI and below PMFSH Past Medical History Medical History (Updated 03/30/21 @ 08:47 by RENE Camejo) Attention deficit disorder of adult with hyperactivity COVID-19 (12/2019) Deep venous thrombosis Unprovoked right gastrocnemius DVT presenting as PE. Effusion of right knee joint Hypertension Obstructive sleep apnea Diagnosed in 2018, mild with an AHI of 5.2. Pulmonary embolism (05/2016) Surgical History Surgical History Status post medial meniscus repair of left knee Family History Family History Grandparent Family history of type 2 diabetes mellitus Mother Family history of lupus erythematosus Sibling Family history of lupus erythematosus Social History Social History (Updated 03/30/21 @ 08:45 by RENE Camejo) Social History: The patient lives in [place] with his and their twins. Lifelong nonsmoker. 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 No illicit substance use. He designates his , Carissa Kemp, as his surrogate decision maker. Code status: Full code. Smoking status: Never smoker Alcohol intake: current Drinks per week: 7 Substance use: never Living arrangements: with family Occupation/Education: occupation A
[2021-03-30] MEDS: levoFLOXacin 500 MG TABLET PO (09:21)
[2021-03-30] MEDS: lisinopriL 10 MG TABLET PO (09:21)
[2021-03-30 09:29] LABS: Hemoglobin 15.1 g/dL (14.0-18.0); Mean Corpuscular HGB Conc 34.3 g/dl (32-36); Mean Corpuscular Hemoglobin 30.3 pg (26-34); Mean Corpuscular Volume 88.2 fl (80-100); Mean Platelet Volume 8.7 fl (7.4-10.4); Platelet Count Result 277 k/mm3 (150-375); Red Blood Count 4.99 M/mm3 (4.6-6.20); Red Cell Distribution Width 13.4 % (11.5-14.5); White Blood Count 13.5 K/mm3 (4.5-10.0)
[2021-03-30 09:48] LABS: Anion Gap 9 mmol/L (8-16); Blood Urea Nitrogen 21 mg/dL (9-20); Calcium 9.1 mg/dL (8.4-10.2); Carbon Dioxide 26 mmol/L (22-30); Chloride 99 mmol/L (98-107); Estimated CRCL calculation 136 ml/min; Estimated Glomerular Filt Rate > 60; Glucose 114 mg/dL (65-110); Potassium 4.4 mmol/L (3.4-5.0); Sodium 134 mmol/L (137-145)
[2021-03-30 10:13] LABS: Uric Acid 9.9 mg/dL (3.5-8.5)
--- NOTE | 2021-03-30 11:54 | PM.IMPN ---
Progress Note: A&P Assessment and Plan (1) Pain and swelling of right knee: Code(s): M25.561 - Pain in right knee; M25.461 - Effusion, right knee Status: Acute Assessment and Plan: The patient has pressure-like discomfort in the right anterior lateral knee with associated swelling and reported warmth in the same region, worse with flexion and weight-bearing. He gives no history to suggest injury though he did have 2 surgeries in the last several days and perhaps the positioning during those procedures have caused some irritation in the area. The area is not red, but does have some slight warm noted. He does have a history of DVT however the pain and swelling is not in an area where that would occur and he has no calf pain or calf swelling, only localized to his knee. X-ray of the right knee showed Moderate-sized right knee joint effusion. Anterior subcutaneous edema. US of right anterior knee showed Moderate-sized right knee joint effusion. No right lower extremity deep venous thrombosis. WBC normal. No systemic symptoms. Afebrile, no tachycardia. No erythema or warmth to suggest septic joint. Will continue with supportive care including elevation, rest, and analgesics as needed. Evaluated by orthopedics who offered aspiration under sterile conditions at bedside, pt is considering procedure at this time. Uric acid also elevated at 9.9. (2) Priapism: Code(s): N48.30 - Priapism, unspecified Status: Acute Assessment and Plan: Per Urology (3) Hypertension: Code(s): I10 - Essential (primary) hypertension Status: Acute Assessment and Plan: His blood pressures were reviewed and they have been running a bit high however does not look like he has been receiving his lisinopril. BP 126/64. Well controlled. Continue monitoring. Additional Plan Subjective Date/time seen: 03/30/21 08:54 40-year-old male w/ hx of HTN and gout initially admitted with persistent trazadone induced priapism and has undergone 3 urologic surgery since date of admission on 03/24/21. We were consulted due to R knee swelling/pain which patient developed 4 days ago while admitted to the hospital. XR and duplex US with effusion, no DVT. States today pain is better, more ROM than yesterday. No redness or warmth. Ortho consult requested. Review of Systems Review of Systems: General: Denies fevers Respiratory: Denies cough or shortness of breath Cardiovascular: Denies chest pain, palpitations, or lower extremity edema Gastrointestinal: Denies abdominal pain, vomiting Genitourinary: +penile pain Musculoskeletal: +knee pain Neurological: Denies headache, paraesthesias, or motor weakness Exam Narrative: General: 40-year-old man laying in bed. Appears mildly uncomfortable secondary to groin pain. Skin: No erythema, warmth, or rash Neck: Full range of motion. Supple. Respiratory: Lungs are clear to auscultation bilaterally anteriorly. No bony chest wall tenderness. Cardiovascular: The heart has a regular rate and rhythm without murmur. Lower extremities: Right anterolateral knee with edema. No erythema or warmth as compared to other knee. Left knee normal. No lower extremity edema. Distal pulses are easily palpated. No calf tenderness to palpation. Gastrointestinal: The abdomen is soft, nontender and nondistended with active bowel sounds. Psychiatric: Lucid and oriented. Memory intact. Neurologic: No focal deficits. Speech is clear. No facial drooping. Objective Data Vital Signs Vital Signs: Vital Signs - 24 hr 03/29/21 14:57 03/29/21 16:00 03/29/21 20:15 Temperature 97.8 F 96.9 F L 97.2 F L Pulse Rate 90 79 86 Respiratory Rate 20 20 20 Blood Pressure 127/79 105/63 133/79 Pulse Oximetry 96 95 96 03/29/21 20:30 03/29/21 20:45 03/29/21 20:55 Temperature Pulse
--- NOTE | 2021-03-30 12:30 | WPDUROPN2 ---
Progress Note: A&P Assessment and Plan (1) Priapism: Code(s): N48.30 - Priapism, unspecified Status: Acute Assessment and Plan: Dressing and toussaint removed without difficulty today, patient tolerated well. We discussed recovery and restrictions. He will have a scrotal support applied and keep his penis faced in an upright position with ICE applied PRN to the affected area. I encouraged activity and for him to get up to the chair and use the restroom. Dr. Sage will see tomorrow and hopefully discharge home. Subjective Subjective Date/Time Seen: 03/30/21 12:30 Patient has had a complicated hospital course with several attempts and interventions to aid in his sustained erection, however d/t all failed conservative measures, the patient underwent a placement of an inflatable 3 piece penile implant with artificial erection yesterday with Dr. Theresa Sage. He is doing well today, tolerating his diet, passing flatus, he is in pain but it is managed with pain medication. Review of Systems Cardiovascular: Cardiovascular: Denies chest pain Respiratory: Respiratory: Reports no additional respiratory complaints Gastrointestinal: Gastrointestinal: Reports abdominal pain, Denies nausea and Denies vomiting Genitourinary: Genitourinary: Denies hematuria, Reports genital pain and Denies flank pain Exam Resp: Effort & Inspection: normal respiratory effort Cardio: Rate: regular rate GI: Inspection: incision (no edema or redness present) GI Palp: Yes Soft to palpation and Yes Tenderness to palpation present (GI) (at incision site only in the RLQ, incision is well approximated, no drainag) : Penis: Yes Localized penile swelling present and Yes other (incisions are well approximated, ecchymosis present and tender on exam) Scrotum: no scrotal swelling Urinary Catheter: Urinary Catheter: patent and draining and urine clear Extrem: General: no edema Objective Data Vital Signs Vital Signs: Vital Signs - 24 hr 03/29/21 14:57 03/29/21 16:00 03/29/21 20:15 Temperature 97.8 F 96.9 F L 97.2 F L Pulse Rate 90 79 86 Respiratory Rate 20 20 20 Blood Pressure 127/79 105/63 133/79 Pulse Oximetry 96 95 96 03/29/21 20:30 03/29/21 20:45 03/29/21 20:55 Temperature Pulse Rate 81 73 Respiratory Rate 18 16 Blood Pressure 130/80 128/86 Pulse Oximetry 99 99 94 03/29/21 21:00 03/29/21 21:15 03/29/21 21:35 Temperature 97.6 F Pulse Rate 80 71 84 Respiratory Rate 16 16 16 Blood Pressure 122/84 136/88 131/85 Pulse Oximetry 95 96 95 03/29/21 21:50 03/29/21 22:20 03/29/21 23:20 Temperature 97.2 F L 98.4 F 98.3 F Pulse Rate 85 82 82 Respiratory Rate 18 18 18 Blood Pressure 132/79 127/73 154/69 H Pulse Oximetry 96 95 96 03/30/21 03:30 03/30/21 06:31 03/30/21 09:18 Temperature 96.8 F L 96.9 F L Pulse Rate 77 79 Respiratory Rate 18 18 Blood Pressure 148/75 H 126/73 Pulse Oximetry 95 94 94 03/30/21 09:43 Temperature 97.2 F L Pulse Rate 86 Respiratory Rate 18 Blood Pressure 126/64 Pulse Oximetry 95 Intake/Output Intake/Output: Intake & Output 03/27/21 03/28/21 03/29/21 03/30/21 23:59 23:59 23:59 23:59 Intake Total 2420 1370 1565.125 790 Output Total 1250 0 2300 Balance 1170 1370 1565.125 -1510 Meds/Results Medications: Active Medications Generic Name Dose Route Start Last Admin Trade Name Freq PRN Reason Stop Dose Admin Hydrocodone Bitart/Acetaminophen 1 tab 03/24/21 19:49 03/26/21 12:35 Hydrocodone/Acetaminophen (*Crx) 5-325 Mg Tablet PO 1 tab Q6H PRN Administration Pain Rated 1-3 Hydrocodone Bitart/Acetaminophen 2 tab 03/24/21 19:49 03/30/21 05:35 Hydrocodone/Acetaminophen (*Crx) 5-325 Mg Tablet PO 2 tab Q6H PRN Administration Pain Rated 4-6 Hyoscyamine 0.125 mg 03/24/21 19:49 03/24/21 20:16 Hyoscyamine Sulfate 0.125 Mg Tablet SUBLINGUAL 0.125 mg Q4H PRN Administration Bladder Spasm Vancomycin HCl 1,000 mg in 250 mls
[2021-03-30] MEDS: GENTAMICIN SULFATE INJ 530 MG in DEXTROSE 5% 100 ML 100 MG IVPB (14:31)
[2021-03-31] MEDS: HYOSCYAMINE SULFATE 0.125 MG TABLET SUBLINGUAL ×4 (02:31→18:40)
[2021-03-31] MEDS: HYDROcodone/acetaminophen (*CRX) 5-325 MG TABLET 1 TAB PO (02:31)
[2021-03-31] MEDS: HYDROcodone/acetaminophen (*CRX) 5-325 MG TABLET 2 TAB PO ×2 (04:15→21:12)
[2021-03-31 06:00] VITALS: BP 132/88; PULSE 88; RESP 22; TEMP 37.1; O2SAT 95
[2021-03-31] MEDS: MORPHINE SULFATE (*CRX) 2 MG/ML INJ 1 MG IV PUSH (08:13)
[2021-03-31] MEDS: lisinopriL 10 MG TABLET PO (08:14)
[2021-03-31] MEDS: levoFLOXacin 500 MG TABLET PO (08:14)
--- NOTE | 2021-03-31 08:16 | WPDUROPN2 ---
Progress Note: A&P Assessment and Plan (1) Priapism: Code(s): N48.30 - Priapism, unspecified Status: Acute Assessment and Plan: s/p IPP POD #2 - incisions healing well - moderate persistent pain. Increase pain medication regimen - Will plan to leave implant partially inflated. Follow up in office in one week - continue antibiotics (2) Obesity: Code(s): E66.9 - Obesity, unspecified Status: Chronic Subjective Subjective Date/Time Seen: 03/31/21 08:16 Pt with pain over incisions No fever, chills Exam Narrative: awake, alert, moderate discomfort abdomen soft incisions clean and intact IPP in place. mild penile edema Objective Data Vital Signs Vital Signs: Vital Signs - 24 hr 03/30/21 09:18 03/30/21 09:43 03/30/21 13:55 Temperature 36.2 C L 37.2 C Pulse Rate 86 88 Respiratory Rate 18 20 Blood Pressure 126/64 138/75 Pulse Oximetry 94 95 96 03/30/21 18:00 03/30/21 19:20 03/30/21 20:00 Temperature 35.9 C L 36.9 C Pulse Rate 92 92 92 Respiratory Rate 18 18 18 Blood Pressure 126/73 131/77 Pulse Oximetry 94 93 93 03/31/21 06:00 Temperature 37.1 C Pulse Rate 88 Respiratory Rate 22 H Blood Pressure 132/88 Pulse Oximetry 95 Intake/Output Intake/Output: Intake & Output 03/28/21 03/29/21 03/30/21 03/31/21 23:59 23:59 23:59 23:59 Intake Total 1370 2890.594 7612.25 550 Output Total 0 3250 800 Balance 1370 1565.125 -1896.75 -250 Meds/Results Medications: Active Medications Generic Name Dose Route Start Last Admin Trade Name Freq PRN Reason Stop Dose Admin Hydrocodone Bitart/Acetaminophen 1 tab 03/24/21 19:49 03/31/21 02:31 Hydrocodone/Acetaminophen (*Crx) 5-325 Mg Tablet PO 1 tab Q6H PRN Administration Pain Rated 1-3 Hydrocodone Bitart/Acetaminophen 2 tab 03/24/21 19:49 03/31/21 04:15 Hydrocodone/Acetaminophen (*Crx) 5-325 Mg Tablet PO 2 tab Q6H PRN Administration Pain Rated 4-6 Hyoscyamine 0.125 mg 03/24/21 19:49 03/31/21 08:14 Hyoscyamine Sulfate 0.125 Mg Tablet SUBLINGUAL 0.125 mg Q4H PRN Administration Bladder Spasm Vancomycin HCl 1,000 mg in 250 mls @ 250 mls/hr 03/30/21 03:00 03/31/21 03:31 Vancomycin 1,000 Mg/D5w 250 Ml IVPB Infused Q12H EDWARD Infusion Gentamicin Sulfate 530 mg/ 113.25 mls @ 104.005 mls/hr 03/30/21 15:00 03/30/21 18:14 Dextrose IVPB Infused Q24H EDWARD Infusion Levofloxacin 500 mg 03/25/21 09:00 03/31/21 08:14 Levofloxacin 500 Mg Tablet PO 500 mg DAILY EDWARD Administration Lisinopril 10 mg 03/28/21 09:00 03/31/21 08:14 Lisinopril 10 Mg Tablet PO 10 mg DAILY EDWARD Administration Miscellaneous Information 1 each 03/31/21 08:10 Pharmacist Communication Order XX 03/31/21 08:11 ONCE ONE Morphine Sulfate 1 mg 03/24/21 19:49 03/31/21 08:13 Morphine Sulfate (*Crx) 2 Mg/Ml Inj IV PUSH 1 mg Q2H PRN Administration Pain Rated 7-10 Naloxone HCl 0.1 mg 03/24/21 19:49 Naloxone Hcl 0.4 Mg/Ml Vial IV PUSH Q2M PRN Opiate Reversal Ondansetron HCl 4 mg 03/24/21 19:49 Ondansetron Inj 4 Mg/2 Ml Vial IV PUSH Q6H PRN Nausea And Vomiting Oxycodone/Acetaminophen 2 tablet 03/31/21 08:09 Oxycodone/Acetaminophen (*Crx) 5-325 Mg Tablet PO Q4H PRN Pain Rated 7-10 Radiology Results: ITS Impressions Knee X-Ray 03/28/21 07:38 IMPRESSION: Moderate-sized right knee joint effusion. Anterior subcutaneous edema. Venous Doppler Study 03/28/21 11:15 IMPRESSION: No right lower extremity deep venous thrombosis. Moderate-sized right knee joint effusion. Labs Labs: Laboratory Results - last 24 hr 03/30/21 03/30/21 03/30/21 09:00 09:03 09:03 WBC 13.5 H RBC 4.99 Hgb 15.1 Hct 44.0 MCV 88.2 MCH 30.3 MCHC 34.3 RDW 13.4 Plt Count 277 MPV 8.7 Sodium 134 L Potassium 4.4 Chloride 99 Carbon Dioxide 26 Anion Gap 9 BUN 21
[2021-03-31 08:20] VITALS: RESP 20; O2SAT 96
[2021-03-31] MEDS: oxyCODONE/ACETAMINOPHEN (*CRX) 5-325 MG TABLET 2 TABLET PO ×3 (09:57→18:39)
--- NOTE | 2021-03-31 12:38 | PM.IMPN ---
Progress Note: A&P Assessment and Plan (1) Pain and swelling of right knee: Code(s): M25.561 - Pain in right knee; M25.461 - Effusion, right knee Status: Acute Assessment and Plan: We were consulted as patient developed R knee pain and swelling during his hospitalization. X-ray of the right knee showed Moderate-sized right knee joint effusion. Anterior subcutaneous edema. US of right anterior knee showed Moderate-sized right knee joint effusion. No right lower extremity deep venous thrombosis. WBC normal. No systemic symptoms. Afebrile, no tachycardia. No erythema or warmth to suggest septic joint. Will continue with supportive care including elevation, rest, and analgesics as needed. Evaluated by orthopedics who offered aspiration under sterile conditions at bedside, pt declined procedure at this time as his pain has resolved spontaneously. Uric acid also elevated at 9.9. Discussed with patient, he reports 2-3 flares of Gout annually and is not on preventative medication. Discussed following up with his pcp to potentially start allopurinol. No further intervention required at this time. (2) Priapism: Code(s): N48.30 - Priapism, unspecified Status: Acute Assessment and Plan: Per Urology - Pain medicine increased today (3) Hypertension: Code(s): I10 - Essential (primary) hypertension Status: Acute Assessment and Plan: His blood pressures were reviewed and they have been running a bit high however does not look like he has been receiving his lisinopril. BP 132/88 Well controlled. Continue monitoring. (4) History of gout: Code(s): Z87.39 - Personal history of other diseases of the musculoskeletal system and connective tissue Status: Acute Assessment and Plan: Uric acid 9.9, could be cause of knee pain. See above for further details. Additional Plan Subjective Date/time seen: 03/31/21 12:38 40-year-old male w/ hx of HTN and gout initially admitted with persistent trazadone induced priapism and has undergone 3 urologic surgery since date of admission on 03/24/21. We were consulted due to R knee swelling/pain which patient developed 5 days ago while admitted to the hospital. XR and duplex US with effusion, no DVT. States today pain is gone. No redness or warmth. Ortho consult yesterday offered to tap the knee but patient declined as the pain has resolved. Uric acid 9.9. Review of Systems Review of Systems: General: Denies fevers Respiratory: Denies cough or shortness of breath Cardiovascular: Denies chest pain, palpitations, or lower extremity edema Gastrointestinal: + abdominal pain and constipation, no vomiting Genitourinary: +penile pain Musculoskeletal: No knee pain Neurological: Denies headache, paraesthesias, or motor weakness Exam Narrative: General: 40-year-old man laying in bed. Appears mildly uncomfortable secondary to groin pain. Skin: No erythema, warmth, or rash Neck: Full range of motion. Supple. Respiratory: Lungs are clear to auscultation bilaterally anteriorly. No bony chest wall tenderness. Cardiovascular: The heart has a regular rate and rhythm without murmur. Lower extremities: Right anterolateral knee with decreasing edema. No erythema or warmth as compared to other knee. No pedal edema. Distal pulses are easily palpated. No calf tenderness to palpation. Gastrointestinal: The abdomen is soft, nontender and nondistended with active bowel sounds. Psychiatric: Lucid and oriented. Memory intact. Neurologic: No focal deficits. Speech is clear. No facial drooping. Objective Data Vital Signs Vital Signs: Vital Signs - 24 hr 03/30/21 13:55 03/30/21 18:00 03/30/21 19:20 Temperature 99.0 F 96.6 F L 98.4 F Pulse Rate 88 92 92 Respiratory Rate 20 18 18 Blood Pressure 138/75 126/73 131/77 P
[2021-03-31 13:55] VITALS: BP 124/84; PULSE 92; RESP 16; TEMP 36.4; O2SAT 95
[2021-03-31] MEDS: GENTAMICIN SULFATE INJ 530 MG in DEXTROSE 5% 100 ML 100 MG IVPB (15:25)
[2021-03-31 20:00] VITALS: PULSE 98; RESP 20; O2SAT 93
[2021-03-31 21:08] VITALS: BP 130/76; PULSE 98; RESP 20; TEMP 36.6; O2SAT 93
[2021-04-01] MEDS: HYOSCYAMINE SULFATE 0.125 MG TABLET SUBLINGUAL (04:18)
[2021-04-01] MEDS: HYDROcodone/acetaminophen (*CRX) 5-325 MG TABLET 2 TAB PO (04:18)
[2021-04-01 05:25] VITALS: BP 131/85; PULSE 91; RESP 14; TEMP 36.8; O2SAT 94
--- NOTE | 2021-04-01 08:35 | WPDUROPN2 ---
Progress Note: A&P Assessment and Plan (1) Priapism: Code(s): N48.30 - Priapism, unspecified Status: Acute Assessment and Plan: Patient to go home today. He will f/u with Dr. Sage next Monday. Subjective Subjective Date/Time Seen: 04/01/21 08:35 Pt with pain over incisions, but tolerating with oral Percocet No fever, chills POD #3 Placement of inflatable 3 piece penile implant Artificial erection dilute lidocaine Eager to go home today, urinating well without toussaint. Review of Systems Cardiovascular: Cardiovascular: Denies chest pain Respiratory: Respiratory: Reports no additional respiratory complaints Gastrointestinal: Gastrointestinal: Reports abdominal pain, Denies nausea and Denies vomiting Genitourinary: Genitourinary: Reports genital pain, Denies dysuria, Denies flank pain, Reports scrotal swelling, Denies urinary frequency and Denies urinary hesitancy Exam Resp: Effort & Inspection: normal respiratory effort Cardio: Rate: regular rate GI: Inspection: incision (all are well approximated, no drainage present, minimal edema) GI Palp: Yes Soft to palpation and Yes Tenderness to palpation present (GI) (at incision site only, no drainage, well approximated.) : General: Yes no CVA tenderness Penis: Yes edematous, No priapism, Yes Localized penile swelling present and Yes other (Incisions are well approximated, no drainage, minimal edema) Scrotum: scrotal swelling (Incisions are well approximated, no drainage or edema) Extrem: General: no edema Objective Data Vital Signs Vital Signs: Vital Signs - 24 hr 03/31/21 13:55 03/31/21 20:00 03/31/21 21:08 Temperature 97.6 F 97.9 F Pulse Rate 92 98 98 Respiratory Rate 16 20 20 Blood Pressure 124/84 130/76 Pulse Oximetry 95 93 93 04/01/21 05:25 Temperature 98.3 F Pulse Rate 91 Respiratory Rate 14 Blood Pressure 131/85 Pulse Oximetry 94 Intake/Output Intake/Output: Intake & Output 03/29/21 03/30/21 03/31/21 04/01/21 23:59 23:59 23:59 23:59 Intake Total 0025.663 2742.25 1773.25 500 Output Total 0 3250 800 850 Balance 1565.125 -1896.75 973.25 -350 Meds/Results Medications: Active Medications Generic Name Dose Route Start Last Admin Trade Name Freq PRN Reason Stop Dose Admin Hydrocodone Bitart/Acetaminophen 1 tab 03/24/21 19:49 03/31/21 02:31 Hydrocodone/Acetaminophen (*Crx) 5-325 Mg Tablet PO 1 tab Q6H PRN Administration Pain Rated 1-3 Hydrocodone Bitart/Acetaminophen 2 tab 03/24/21 19:49 04/01/21 04:18 Hydrocodone/Acetaminophen (*Crx) 5-325 Mg Tablet PO 2 tab Q6H PRN Administration Pain Rated 4-6 Hyoscyamine 0.125 mg 03/24/21 19:49 04/01/21 04:18 Hyoscyamine Sulfate 0.125 Mg Tablet SUBLINGUAL 0.125 mg Q4H PRN Administration Bladder Spasm Levofloxacin 500 mg 03/25/21 09:00 03/31/21 08:14 Levofloxacin 500 Mg Tablet PO 500 mg DAILY EDWARD Administration Lisinopril 10 mg 03/28/21 09:00 03/31/21 08:14 Lisinopril 10 Mg Tablet PO 10 mg DAILY EDWARD Administration Morphine Sulfate 1 mg 03/24/21 19:49 03/31/21 08:13 Morphine Sulfate (*Crx) 2 Mg/Ml Inj IV PUSH 1 mg Q2H PRN Administration BREAK THROUGH PAIN 7-10 Naloxone HCl 0.1 mg 03/24/21 19:49 Naloxone Hcl 0.4 Mg/Ml Vial IV PUSH Q2M PRN Opiate Reversal Ondansetron HCl 4 mg 03/24/21 19:49 Ondansetron Inj 4 Mg/2 Ml Vial IV PUSH Q6H PRN Nausea And Vomiting Oxycodone/Acetaminophen 2 tablet 03/31/21 08:09 03/31/21 18:39 Oxycodone/Acetaminophen (*Crx) 5-325 Mg Tablet PO 2 tablet Q4H PRN Administration Pain Rated 7-10 Trimethoprim/Sulfamethoxazole 1 tab 03/31/21 09:00 03/31/21 20:23 Trimethoprim/Sulfamethoxazole 160-800 Mg Ds Tablet PO 1 tab Q12HR EDWARD Administration Radiology Results: ITS Impressions Knee X-Ray 03/28/21 07:38 IMPRESSION: Moderate-sized right knee joint effusion. Anterior subcutaneous edema. Ve
--- NOTE | 2021-04-01 08:39 | PM.DS ---
DS: Admitting Diagnosis Discharge Date 04/01/2021 Admitting Diagnosis Priapism DS: Discharge Diagnosis Discharge Diagnosis (1) Priapism: Code(s): N48.30 - Priapism, unspecified Status: Acute Assessment and Plan: See note below DS: Summary Hospital Course Hospital Course: Patient was initially seen in the ER on 03/24/[address] Clemente for refractory priapism drug induced. The patient had an erection for >30 hours prior to coming to the ER. An attempted aspiration and injection of phenylephrine at bedside was done, but was unsuccessful leading to a procedure in the OR that evening by Dr. Clemente: Corporal spongiosum shunt. It too was unsuccessful and the patient was then seen and evaluated by Dr. Theresa Sage on 03/26/2021 d/t persistent priapism and he underwent a second operation: Distal corporal glandular shunt with corporal tunneling. This too was unsuccessful. It was then determined by Dr. Sage that the patient would not be able to obtain and erection in the future d/t the permanent damage that occurred from prolonged priapism that was unresponsive to conservative treatment. The decision was then made to proceed with Placement of inflatable 3 piece penile implant and artificial erection dilute lidocaine on 03/29/2021. The procedure was done by Dr. Theresa Sage successfully and he was transferred to recovery in stable condition and to the floor for further observation. He has since done well, is tolerating his diet and light activity well. He is tolerating pain with oral pain medications at this time and will be discharged home. He will resume activity as tolerated, diet as tolerated, resume all home medications and follow up in our office next week with Dr. Sage. Time Spent with Patient Time attestation: Total time spent providing and/or coordinating discharge services: 30 minutes Patient was initially seen in the ER on 03/24/[address] Clemente for refractory priapism drug induced. The patient had an erection for >30 hours prior to coming to the ER. An attempted aspiration and injection of phenylephrine at bedside was done, but was unsuccessful leading to a procedure in the OR that evening by Dr. Clemente: Corporal spongiosum shunt. It too was unsuccessful and the patient was then seen and evaluated by Dr. Theresa Sage on 03/26/2021 d/t persistent priapism and he underwent a second operation: Distal corporal glandular shunt with corporal tunneling. This too was unsuccessful. It was then determined by Dr. Saeg that the patient would not be able to obtain and erection in the future d/t the permanent damage that occurred from prolonged priapism that was unresponsive to conservative treatment. The decision was then made to proceed with Placement of inflatable 3 piece penile implant and artificial erection dilute lidocaine on 03/29/2021. The procedure was done by Dr. Theresa Sage successfully and he was transferred to recovery in stable condition and to the floor for further observation. He has since done well, is tolerating his diet and light activity well. He is tolerating pain with oral pain medications at this time and will be discharged home. He will resume activity as tolerated, diet as tolerated, resume all home medications and follow up in our office next week with Dr. Sage. Exam Resp: Effort & Inspection: normal respiratory effort Cardio: Rate: regular rate GI: GI Palp: Yes Soft to palpation and Yes Tenderness to palpation present (GI) (at incisions only) : General: Yes no CVA tenderness Penis: Yes Localized penile swelling present and Yes other (tenderness over incisions, well approximated, no drainage) Scrotum: scrotal swelling (tenderness over insicisons, well approximated, no drainage) Extrem: General: no edema Discharge Plan Discharge Attending physician on discharge: Eduardo Clemente Consulting providers: Aida Wood ; Sunny Subramanian ; Evette Currie
[2021-04-01 08:42] VITALS: RESP 16; O2SAT 94
[2021-04-01] MEDS: lisinopriL 10 MG TABLET PO (08:42)
[2021-04-01] MEDS: levoFLOXacin 500 MG TABLET PO (08:42)
--- NOTE | 2021-04-01 09:11 | PM.PNORT ---
Progress Note: A&P Assessment and Plan (1) Effusion of right knee joint: Code(s): M25.461 - Effusion, right knee Status: Acute Assessment and Plan: Right Knee joint effusion pain with marked improvement. Elevated uric acid. Patient continues to decline aspiration. No redness/warmth of the right knee joint. No pain with flexion/extension. Patient to follow up with PCP for gout management. Follow up with ortho as needed for knee pain. Subjective Subjective Date/Time Seen: 04/01/21 09:11 No longer complaining of right knee pain. Planning for d/c today. Review of Systems Review of Systems: All systems reviewed & are unremarkable except as noted in HPI and below Exam Const: General: cooperative Nutritional Appearance: average body habitus Orientation/consciousness: patient oriented x3 Limitations: no limitations HENMT: Head: normal to inspection Ears: hearing grossly normal bilaterally General nose exam: Normal external nose present Face and sinus: normal facial exam Mouth: Yes moist mucous membranes Teeth and gingiva: dentition normal Eyes: General: appearance normal, both eyes and all related structures Pupils: Equal, round and reactive pupils present EOM: EOMs intact bilaterally Neck: Neck: normal visual inspection Chest: Chest palpation & inspection: normal inspection of the chest Resp: Effort & Inspection: normal respiratory effort and able to speak in complete sentences Cardio: Jugular venous distension: no JVD Neuro: General: patient oriented x3 Cranial nerves: Yes Equal, round and reactive pupils present Extrem: Right lower extremity: knee Details: swelling ( mild knee joint effusion) Location: not of the pre-patellar area ( no evidence of prepatellar bursitis), normal ROM, Lobo's Test Details: negative medially and laterally, warmth ( mild) Location: of the entire knee joint and other ( no erythema, no open wounds); no ecchymosis, no crepitus and no deformity, lower leg Details: normal to inspection, palpable cord and no edema; no tenderness, no localized swelling, no abrasions, no ecchymosis and no crepitus, ankle Details: normal to inspection, no edema and normal ROM; no tenderness, no swelling, no ecchymosis and no crepitus and foot Details: normal capillary refill, vascular exam Details: dorsalis pedis pulse present and motor-sensory exam Details: two point discrimination normal and light-touch normal; no tenderness Left lower extremity: normal to inspection and knee Details: normal to inspection and normal ROM; no tenderness and no swelling Objective Data Vital Signs Vital Signs: Vital Signs - 24 hr 03/31/21 13:55 03/31/21 20:00 03/31/21 21:08 Temperature 36.4 C 36.6 C Pulse Rate 92 98 98 Respiratory Rate 16 20 20 Blood Pressure 124/84 130/76 Pulse Oximetry 95 93 93 04/01/21 05:25 Temperature 36.8 C Pulse Rate 91 Respiratory Rate 14 Blood Pressure 131/85 Pulse Oximetry 94 Intake/Output Intake/Output: Intake & Output 03/29/21 03/30/21 03/31/21 04/01/21 23:59 23:59 23:59 23:59 Intake Total 5354.367 2364.25 1773.25 500 Output Total 0 3250 800 850 Balance 1565.125 -1896.75 973.25 -350 Meds/Results Medications: Active Medications Generic Name Dose Route Start Last Admin Trade Name Freq PRN Reason Stop Dose Admin Hydrocodone Bitart/Acetaminophen 1 tab 03/24/21 19:49 03/31/21 02:31 Hydrocodone/Acetaminophen (*Crx) 5-325 Mg Tablet PO 1 tab Q6H PRN Administration Pain Rated 1-3 Hydrocodone Bitart/Acetaminophen 2 tab 03/24/21 19:49 04/01/21 04:18 Hydrocodone/Acetaminophen (*Crx) 5-325 Mg Tablet PO 2 tab Q6H PRN Administration Pain Rated 4-6 Hyoscyamine 0.125 mg 03/24/21 19:49 04/01/21 04:18 Hyoscyamine Sulfate 0.125 Mg Tablet SUBLINGUAL 0.125 mg Q4H PRN Administration Bladder Spasm Levofloxacin 500 mg 03/25/21 09:00 04/01/21 08:42 Levofloxacin 500 Mg Tablet PO 500 mg DAILY EDWARD Administration Lisin
--- NOTE | 2021-04-01 13:33 | PM.IMPN ---
Progress Note: A&P Assessment and Plan (1) Pain and swelling of right knee: Code(s): M25.561 - Pain in right knee; M25.461 - Effusion, right knee Status: Acute Assessment and Plan: We were consulted as patient developed R knee pain and swelling during his hospitalization. X-ray of the right knee showed Moderate-sized right knee joint effusion. Anterior subcutaneous edema. US of right anterior knee showed Moderate-sized right knee joint effusion. No right lower extremity deep venous thrombosis. WBC normal. No systemic symptoms. Afebrile, no tachycardia. No erythema or warmth to suggest septic joint. Will continue with supportive care including elevation, rest, and analgesics as needed. Evaluated by orthopedics who offered aspiration under sterile conditions at bedside, pt declined procedure at this time as his pain has resolved spontaneously. Uric acid also elevated at 9.9. Discussed with patient, he reports 2-3 flares of Gout annually and is not on preventative medication. Discussed following up with his pcp to potentially start allopurinol. No further intervention required at this time. (2) Priapism: Code(s): N48.30 - Priapism, unspecified Status: Acute Assessment and Plan: Per Urology (3) Hypertension: Code(s): I10 - Essential (primary) hypertension Status: Acute Assessment and Plan: Blood pressures were initially elevated, likely due to pain. Has remained stable after restarting his Lisinopril. (4) History of gout: Code(s): Z87.39 - Personal history of other diseases of the musculoskeletal system and connective tissue Status: Acute Assessment and Plan: Uric acid 9.9, could be cause of knee pain. See above for further details. Additional Plan Subjective Date/time seen: 04/01/21 13:33 40-year-old male w/ hx of HTN and gout initially admitted with persistent trazadone induced priapism and has undergone 3 urologic surgery since date of admission on 03/24/21. We were consulted due to R knee swelling/pain which patient developed 5 days ago while admitted to the hospital. XR and duplex US with effusion, no DVT. States today pain is gone. No redness or warmth. Ortho consult yesterday offered to tap the knee but patient declined as the pain has resolved. Uric acid 9.9. Review of Systems Review of Systems: General: Denies fevers Respiratory: Denies cough or shortness of breath Cardiovascular: Denies chest pain, palpitations, or lower extremity edema Gastrointestinal: + abdominal pain and constipation, no vomiting Genitourinary: +penile pain Musculoskeletal: No knee pain Neurological: Denies headache, paraesthesias, or motor weakness Exam Narrative: General: 40-year-old man laying in bed. Appears mildly uncomfortable secondary to groin pain. Skin: No erythema, warmth, or rash Neck: Full range of motion. Supple. Respiratory: Lungs are clear to auscultation bilaterally anteriorly. No bony chest wall tenderness. Cardiovascular: The heart has a regular rate and rhythm without murmur. Lower extremities: Right anterolateral knee with edema that continues to decrease. No erythema or warmth as compared to other knee. No pedal edema. Distal pulses are easily palpated. No calf tenderness to palpation. Gastrointestinal: The abdomen is soft, nontender and nondistended with active bowel sounds. Psychiatric: Lucid and oriented. Memory intact. Neurologic: No focal deficits. Speech is clear. No facial drooping. Objective Data Vital Signs Vital Signs: Vital Signs - 24 hr 03/31/21 13:55 03/31/21 20:00 03/31/21 21:08 Temperature 97.6 F 97.9 F Pulse Rate 92 98 98 Respiratory Rate 16 20 20 Blood Pressure 124/84 130/76 Pulse Oximetry 95 93 93 04/01/21 05:25 04/01/21 08:42 Temperature 98.3 F Pulse Rate 91 Respi
== END 2021-04-01 11:00 | disposition home or self-care (01) | DRG 709 ==
LOC: ANHED 16:55 → ANHSURGERY 17:01 → ANH2MED 19:55
PROVIDERS: Nurse Practitioner Family; Physician Assistant; Urology; Admitting Provider Urology; Emergency Provider Emergency Medicine; PCP Family Medicine; Visit Provider Nurse Practitioner Adult Health
PROC: 0V9S3ZZ Drainage of Penis, Percutaneous Approach (ICD-10-PCS; CPT 54220; principal; 2021-03-24 17:00)
PROC: 0VUS0JZ Supplement Penis with Synthetic Substitute, Open Approach (ICD-10-PCS; principal; 2021-03-29 15:00)
DX: N48.33 Priapism, drug-induced (principal); Z68.42 Body mass index [BMI] 45.0-49.9, adult; T43.215A Adverse effect of selective serotonin and norepinephrine reuptake inhibitors, initial encounter; M25.461 Effusion, right knee; I10 Essential (primary) hypertension; G47.33 Obstructive sleep apnea (adult) (pediatric); E66.01 Morbid (severe) obesity due to excess calories; F90.9 Attention-deficit hyperactivity disorder, unspecified type; Z86.711 Personal history of pulmonary embolism; Z86.718 Personal history of other venous thrombosis and embolism; Z86.16 Personal history of COVID-19; Z87.39 Personal history of other diseases of the musculoskeletal system and connective tissue
CPT/HCPCS: 36415; 73562; 80048; 80053; 83735; 84550; 85025; 85027; 86140; 93971; 96361; 96365; 96374; 96375; 99285; A9270; C1813; J0690; J1100; J1170; J1580; J2250; J2270; J2370; J2405; J2704; J3010; J3370; J7030; J7120

== ENCOUNTER 2023-12-07 09:23 | Emergency (ER) | payer BC, SELFPAY ==
[2023-12-07] VITALS (10 sets, daily range): BP systolic 114–149; BP diastolic 71–112; PULSE 61–69; RESP 16–23; TEMP 36.6; O2SAT 90–98
--- NOTE | ~2023-12-07 | XR_ITS ---
EXAMINATION: XR chest 2V 12/07/2023 10:39 INDICATION: History of blood clots. Upper abdomen pain. PROCEDURE: 2 view chest COMPARISON: 12/04/2019 FINDINGS: The lungs are clear. The cardiomediastinal silhouette is within normal limits. There are no pleural effusions. There is no pneumothorax suspected. IMPRESSION: 1: NO ACUTE CARDIOPULMONARY DISEASE. Reviewed, dictated and finalized at location B.
--- NOTE | ~2023-12-07 | CT_ITS ---
EXAMINATION: CT abdomen pelvis w con DATE: 12/07/2023 10:32 INDICATION: Upper abdominal pain TECHNIQUE: Computed tomography (CT) of the abdomen and pelvis was performed with 100 mL Omnipaque-350 intravenous contrast. Automated exposure control and iterative reconstruction technique were employe d. The dose-length product was 1717.25 mGy-cm. COMPARISON: None FINDINGS: Visualized lower lungs are clear. Heart size is normal. No pericardial or pleural effusion. Postopera tive change of prior sleeve gastrectomy with suture line along the greater curvature of the stomach. Liver, gallbladder, pancreas, bilateral adrenal glands and kidneys are normal. Nonspecific mild splen omegaly. There is stranding throughout the mesentery in the right side of the abdomen tear which exte nds a dilated draining mesenteric vein. There are 2 separate superior mesenteric veins which meet at the confluence with the superior mesenteric vein. There is small amount of contrast surrounding centr al hypodense thrombosis within the right-sided superior mesenteric vein branch which extends towards the region of mesenteric edema. No extension of thrombus into the portal vein. Bowels including the a ppendix appear normal with no abnormal wall thickening or obstruction. Partially decompressed bladder is normal. Penile prosthesis with reservoir along the anterior margin of the right rectus abdominis muscle. No free intraperitoneal gas or fluid. No pathologically enlarged abdominal or pelvic lymphade nopathy. Mild thoracic and lumbar spondylosis. IMPRESSION: 1. 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 Reviewed, dictated and finalized at location A. IMPRESSION: 1. 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
--- NOTE | 2023-12-07 09:29 | ECG_ITS ---
Test Date: 2023-12-07 09:53:57 Measurements Intervals [place] Rate: 71 P: 43 DC: 164 QRS: 55 QRSD: 104 T: 24 QT: 383 QTc: 417 Interpretive Statements SINUS RHYTHM BASELINE ARTIFACT- I, III, AVL NORMAL ECG No previous ECG available for comparison Electronically Signed On 12-07-2023 10:14:16 CDT by Marco Muniz D.O.
--- NOTE | 2023-12-07 09:29 | ED.ABDPAIN ---
HPI - Abdominal Pain General Chief Complaint: Abdominal Pain Stated Complaint: abd pain Time Seen by Provider: 12/07/23 09:29 Source: patient Mode of arrival: ambulatory Limitations: no limitations History of Present Illness HPI narrative: MID ABDOMINAL PAIN ACROSS, DULL ACHING, AND KNOWING, CONSTANT FOR THE LAST 4 DAYS. HE DENIES ANY AGGRAVATING OR RELIEVING FACTORS. HE DENIES ANY FEVER, CHILLS, NAUSEA, VOMITING, DIARRHEA, CONSTIPATION. HE REPORTS POOR APPETITE. HISTORY OF GASTRIC SLEEVE SURGERY 16 MONTHS AGO. HE DRINKS OCCASIONALLY AND DOES NOT SMOKE OR USES MARIJUANA. 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 Effusion of right knee joint Hypertension Obstructive sleep apnea Diagnosed in 2018, mild with an AHI of 5.2. Pulmonary embolism (05/2016) Surgical History Surgical History Status post medial meniscus repair of left knee Family History Family History Grandparent Family history of type 2 diabetes mellitus Mother Family history of lupus erythematosus Sibling Family history of lupus erythematosus Social History Social History Social History: The patient lives in [place] with his and their twins. Lifelong nonsmoker. 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 No illicit substance use. He designates his , Carissa Kemp, as his surrogate decision maker. Code status: Full code. 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 MUSCULOSKELETAL: NORMAL RANGE OF MOTION, NONTENDER BACK NEUROLOGIC: ALERT AND ORIENTED ?3, MANAGER RESEARCH AND DEVELOPMENT IS NORMAL TESTED, NO GROSS MOTOR DEFICIT Course Consultations Consultation #1: DR. ESPITIA, VASCULAR SURGEON AT [facility] WHO ACCEPTED PATIENT TRANSFER Date: 12/07/23 Time: 12:03 Vital Signs Vital signs: Vital Signs Temperature 36.6 C 12/07/23 09:23 Pulse Rate 61 12/07/23 09:23 Respiratory Rate 16 12/07/23 09:23 Blood Pressure 141/112 H 12/07/23 09:23 Pulse Oximetry 95 12/07/23 09:23 Oxygen Delivery Room Air 12/07/23 09:23 Temperature 36.6 C 12/07/23 09:23 Pulse Rate 61 12/07/23 09:23 Respiratory Rate 16 12/07/23 09:23 Blood Pressure 146/94 H 12/07/23 11:11 Pulse Oximetry 95 12/07/23 11:11 Oxygen Delivery Room Air 12/07/23 09:23 MDM - Abdominal Pain MDM Narrative Medical decision making n
[2023-12-07] MEDS: SODIUM CHLORIDE 0.9% IV 1,000 ML 999 ML IV CONT (09:50)
[2023-12-07 09:55] LABS: Basophils Percent Auto 0.4 % (0.2-1.2); Eosinophils Absolute Auto 0.1 K/mm3 (0-0.3); Hematocrit 50.2 % (42.0-52.0); Hemoglobin 17.4 g/dL (14.0-18.0); Immature Granulocyte Absolute 0.02 K/mm3 (0.00-0.031); Immature Granulocyte Percent A 0.3 % (0-0.5); Lymphocytes Absolute Auto 1.04 K/mm3 (0.9-3.2); Lymphocytes Percent Auto 14.9 % (18.3-44.2); Mean Corpuscular HGB Conc 34.7 g/dl (32-36); Mean Corpuscular Hemoglobin 31.4 pg (26-34); Mean Corpuscular Volume 90.5 fl (80-100); Mean Platelet Volume 8.6 fl (7.4-10.4); Monocytes Absolute Auto 0.7 K/mm3 (0.1-0.6); Monocytes Percent Auto 9.7 % (2.6-8.5); Neutrophils Absolute Auto 5.2 K/mm3 (1.3-6.7); Neutrophils Percent Auto 73.7 % (45.5-73.1); Platelet Count Result 196 k/mm3 (150-375); Red Blood Count 5.55 M/mm3 (4.6-6.20); Red Cell Distribution Width 13.5 % (11.5-14.5)
[2023-12-07 10:08] LABS: Lactic Acid Reflex 0.7 mmol/L (0.7-2.0)
[2023-12-07 10:14] LABS: Alanine Aminotransferase 26 U/L (6-50); Albumin Level 4.4 g/dL (3.5-5.1); Alkaline Phosphatase 70 U/L (38-126); Anion Gap 11 mmol/L (4-12); Aspartate Amino Transferase 30 U/L (17-59); Bilirubin,Total 1.4 mg/dL (0.2-1.3); Blood Urea Nitrogen 12 mg/dL (9-20); Calcium 9.3 mg/dL (8.4-10.2); Carbon Dioxide 26 mmol/L (22-30); Chloride 101 mmol/L (98-107); Estimated CRCL calculation 141 ml/min; Estimated Glomerular Filt Rate > 60; Glucose 91 mg/dL (65-110); Lipase 39 U/L (23-300); Sodium 138 mmol/L (137-145)
[2023-12-07 10:26] LABS: Appearance Urine Cloudy (Clear); Bacteria Urine None Seen /hpf; Bilirubin Urine Negative (Negative); Blood Urine Negative (Negative); Color Urine Dark Yellow (Yellow); Glucose Urine UA Negative (Negative); Ketones Urine Trace mg/dL (Negative); Leukocyte Esterase Ur 2+ LEU/UL (Negative); Nitrate Urine Negative (Negative); Non Pathogenic Casts 0-2; Protein Urine Trace mg/dL (Negative); RBC Urine 0-2 /hpf (0-2); Specific Grav Ur 1.025 (1.001-1.035); Squamous Epithelial Cell Urine None Seen /hpf (Few); WBC Urine 51-100 /hpf (0-3)
[2023-12-07 10:33] LABS: Add Urine Microscopic? YES
[2023-12-07 11:21] LABS: INR 0.9; Prothrombin Time 12.9 Seconds (11.1-14.7)
[2023-12-07 11:22] LABS: Partial Thromboplastin Time 29.5 Seconds (22.3-36.8)
[2023-12-07] MEDS: HEPARIN SODIUM 5,000 UNITS/ML VIAL 8500 UNITS IV PUSH (11:30)
[2023-12-07] MEDS: HEPARIN SOD/D5W 100 UNITS/ML 25,000 UNITS/250 ML BAG 15 UNITS IV CONT (11:32)
[2023-12-07] MEDS: HYDROmorphone HCL INJ (*CRX) 1 MG/ML SYR 0.5 MG IV PUSH (12:00)
--- NOTE | 2023-12-07 12:45 | PC.NURSE ---
called [facility] and spoke to Tonja FELIPE for report
== END 2023-12-07 14:54 | disposition short-term general hospital (02) ==
PROVIDERS: Emergency Provider Emergency Medicine; PCP Family Medicine
DX: K55.059 Acute (reversible) ischemia of intestine, part and extent unspecified (principal); N39.0 Urinary tract infection, site not specified; I10 Essential (primary) hypertension; G47.33 Obstructive sleep apnea (adult) (pediatric); Z98.84 Bariatric surgery status; Z86.16 Personal history of COVID-19; Z86.711 Personal history of pulmonary embolism; Z79.899 Other long term (current) drug therapy
CPT/HCPCS: 36415; 71046; 74177; 80053; 81001; 83605; 83690; 85025; 85610; 85730; 87086; 93005; 96361; 96365; 96366; 96368; 96375; 99285; J0696; J1170; J1644; J7030; Q9967